=== PATIENT | male | born 1985 | race Caucasian/White ===

== ENCOUNTER 2018-12-11 11:06 | Day surgery (SDC) | payer BC ==
[2018-12-08 14:59] VITALS: BMI 22.3
[~2018-12-11 11:06] MED LIST: LACTATED RINGERS 1,000 ML IV SCH; LIDOCAINE 1% 20 ML VIAL (10MG/ML) FOR IV START INTRADERMA PRN
[2018-12-11 11:27] VITALS: TEMP 98.8
[2018-12-11] MEDS ORDERED: MIDAZOLAM 2 MG/2 ML VIAL ONE (11:52)
[2018-12-11] MEDS ORDERED: LIDOCAINE 1% INJ 10MG/ML (20 ML MDV) ONE (11:52)
[2018-12-11] MEDS ORDERED: PROPOFOL 10 MG/ML 20 ML VIAL IV ONE (11:52)
[2018-12-11] MEDS ORDERED: HEPARIN SODIUM,PORCINE 5,000 UNIT/ML 1 ML VIAL SQ ONE (12:05)
[2018-12-11 12:48] VITALS: BP 109/70; PULSE 76; RESP 18
--- NOTE | 2018-12-11 13:31 | P.PCN ---
Date of Procedure: 12/11/18 Procedure(s) Performed: Procedure: Colonoscopy and biopsy. Preoperative diagnosis: Rectal bleeding and mucus discharge off around 2 weeks duration and family history of colitis in his brother. Postoperative diagnosis: 1. Nonspecific changes in the sigmoid and rectum raising the possibility of resolving colitis. 2. Biopsies obtained from the terminal ileum, right colon sigmoid and rectum. Preparation: HalfLytely prep. Sedation: Was provided by anesthesia. Brief clinical history: The patient is a 33-year-old male who I have evaluated in the office earlier this month because of blood in the stools and family history of ulcerative colitis. He reported that he has been seeing blood and mucus in his stools starting earlier this year and has frequent bowel movements up to 5 times per day which he describes as loose. He lost 20 pounds in 1 month because he was avoiding certain foods. He said that the bleeding now has stopped 4 days ago and he has been avoiding bread. He has family history of ulcerative colitis in his brother. This evaluation is to rule out inflammatory bowel disease. Procedure: With the patient on his left lateral decubitus position and after informed consent and adequate sedation, the perianal area was inspected and it did not show any fissures or fistulas. There were no masses felt on digital rectal examination. The Olympus CFH 190L video colonoscope was then inserted in the rectum in the usual fashion and advanced to the cecum. I intubated the ileocecal valve and examined the terminal ileum. Terminal ileum and the majority of the colon appeared healthy with no edema, erythema, friability, ulceration, exudation or spontaneous bleeding. The distal sigmoid and rectum showed nonspecific changes consisting of erythema, some friability and scattered small erosions. There was no typical findings of ulcerative colitis. I obtained biopsies from the terminal ileum and right colon as well as from the sigmoid and rectum. I retroflexed the endoscope in the rectum before the endoscope was withdrawn. The patient tolerated the procedure well. Plan: I summarized the findings to the patient. Will await biopsy results and make further plans. I will keep you updated on his progress.
== END 2018-12-11 13:27 | disposition home or self-care (01) ==
LOC: ORWHC2ENDO 11:06
DX: K52.9 Noninfective gastroenteritis and colitis, unspecified (principal); Z83.79 Family history of other diseases of the digestive system; Z87.891 Personal history of nicotine dependence; Z88.1 Allergy status to other antibiotic agents; Z88.0 Allergy status to penicillin
CPT/HCPCS: 88305; 45380; J2250; J2001; J2704

== ENCOUNTER 2024-12-12 11:30 | Inpatient (IN) | payer BC ==
[2024-12-12] MEDS: HYDROmorphone 0.5 MG/0.5 ML SYRINGE IVP STA (11:59)
[2024-12-12] MEDS: SODIUM CHLORIDE 0.9% 1,000 ML IV STA ×2 (12:00→13:21)
--- NOTE | 2024-12-12 12:13 | ED ---
Abdominal Pain HPI - General Chief Complaint: Abdominal Pain Stated Complaint: Constipation Time Seen by Provider: 12/12/24 11:38 Source: patient, RN notes reviewed Mode of arrival: ambulatory Limitations: no limitations - History of Present Illness Initial Comments: This is a 39-year-old male who presents to the emergency department for abdominal pain and problems with his bowels. Patient has a history of ulcerative colitis. States that he had norovirus 3 weeks ago and since then he has been dealing with very small but frequent bowel movements, going at least once every hour. He thought that he was improving, however over the last 3 days he seems to be getting worse. He has been unable to sleep due to getting up to use the bathroom. He has followed up with Dr. Song, GI, twice over the last couple weeks. States that he was just started on budesonide, however this has not been helping either. Denies any nausea or vomiting. He does have some generalized abdominal discomfort and is concerned about a bowel obstruction. MD Complaint: abdominal pain - Related Data Home Medications Medication Instructions Recorded Confirmed Balsalazide Disodium 2,250 mg PO TID 03/04/24 12/12/24 Budesonide [Entocort EC] See Taper PO DAILY 12/12/24 12/12/24 Allergies Allergy/AdvReac Type Severity Reaction Status Date / Time amoxicillin Allergy Rash/Hives Verified 12/12/24 13:53 erythromycin base Allergy Rash/Hives Verified 12/12/24 13:53 Penicillins Allergy Rash/Hives Verified 12/12/24 13:53 Review of Systems ROS Statement: Those systems with pertinent positive or pertinent negative responses have been documented in the HPI. ROS Other: All systems not noted in ROS Statement are negative. Past Medical History Past Medical History: GI Bleed Additional Past Medical History / Comment(s): HX OF GI BLEED, ABD PAIN, ULCERATIVE COLITIS History of Any Multi-Drug Resistant Organisms: None Reported Past Surgical History: Ear Surgery Additional Past Surgical History / Comment(s): BMT. WISDOM TEETH. COLONOSCOPY Past Anesthesia/Blood Transfusion Reactions: No Reported Reaction, Motion Sickness Past Psychological History: No Psychological Hx Reported Smoking Status: Former smoker - Past Family History Mother Family Medical History: Cancer Additional Family Medical History / Comment(s): THYROID [place] General Exam Limitations: no limitations General appearance: alert, in no apparent distress Head exam: Present: atraumatic, normocephalic, normal inspection Respiratory exam: Present: normal lung sounds bilaterally. Absent: respiratory distress, wheezes, rales, rhonchi, stridor Cardiovascular Exam: Present: regular rate, normal rhythm GI/Abdominal exam: Present: soft, tenderness (diffuse), normal bowel sounds. Absent: distended Neurological exam: Present: alert, oriented X3, CN II-XII intact Psychiatric exam: Present: normal affect, normal mood Skin exam: Present: warm, dry, intact, normal color. Absent: rash Course Vital Signs 12/12/24 12/12/24 12/12/24 11:31 15:21 16:14 Temperature 98.7 F 97.9 F Pulse Rate 123 H 96 98 Respiratory 18 18 18 Rate Blood Pressure 121/78 124/77 118/77 O2 Sat by Pulse 99 98 97 Oximetry Medical Decision Making - Medical Decision Making This is a 39-year-old male who presents to the emergency department for abdominal pain and changes in bowel habits. Was pt. sent in by a medical professional or institution? @ -No Did you speak to anyone other than the patient for history? @ -No Did you review nursing and triage notes? @ -Yes, and I agree, it is accurate with regards to the patient's symptoms. Were old charts reviewed? @ -Stool testing from 11/30/2024 with a positive lactoferrin and calprotectin of 371 Differential Diagnosis? @ -Differential Abdominal Pain Men: Appendicitis, cholecystitis, diverticulosis, ischemic bowel, pancreatitis, hepatitis, UTI, gastroenteritis, AAA, incarcerated hernia, bowel obstruction, constipation, inflammatory bowel, hepatitis, peptic ulcer disease, splenic infarction, perforated viscus, testicular torsion, this is not meant to be an all-inclusive list EKG interpreted by me (3pts min.)? @ -Not obtained X-rays interpreted by me (1pt min.)? @ -Not obtained CT interpreted by me (1pt min.)? @ -CT scan of the abdomen and pelvis obtained. My interpretation identifies wall thickening of the colon. U/S interpreted by me (1pt. min.)? @ -Not obtained What testing was considered but not performed? (CT, X-rays, U/S, labs)? Why? @ -None What meds were considered but not given? Why? @ -None Did you discuss the management of the patient with other professionals? @ -Yes, Dr. Mckeon, who accepts the patient for admission. Did you reconcile home meds? @ -Yes Was smoking cessation discussed for >3mins.? @ -No Was critical care preformed (if so, how long)? @ -No Were there social determinants of health that impacted care today? How? (Homelessness, low income, unemployed, alcoholism, drug addiction, transportation, low edu. Level, literacy, decrease access to med. care, [place] [facility], rehab)? @ -No Was there de-escalation of care discussed even if they declined? (Discuss DNR or withdrawal of care, Hospice)? @ -No What co-morbidities impacted this encounter? (DM, HTN, Smoking, COPD, CAD, Cancer, CVA, Hep., AIDS, mental health diagnosis, sleep apnea, morbid obesity)? @ -Ulcerative colitis Was patient admitted / discharged? @ -Admitted. Lab work demonstrates leukocytosis with a white blood cell count of 18.1. CRP elevated at 7.5. Urinalysis negative for signs of infection. C. difficile testing negative. CT scan of the abdomen and pelvis demonstrates diffuse colitis likely from infectious/inflammatory process. Patient has been dealing with this for 3 weeks at this point and is on both colazal and budesonide without any relief. It is not clear if the leukocytosis is secondary to the steroid use versus infection. Given the progression of his symptoms with failed outpatient management, he was admitted to medicine for pancolitis. He was started on methylprednisolone 20 mg every 8 hours. Consult placed for general surgery. Repeat lactoferrin and calprotectin testing ordered with results pending at the time of admission as well as a stool culture. Case discussed with ED attending Dr. Sanchez. Undiagnosed new problem with uncertain prognosis? @ -None Drug Therapy requiring intensive monitoring for toxicity (Heparin, Nitro, Insulin, Cardizem)? @ -None Were any procedures done? @ -None Diagnosis/symptom? @ -Pancolitis, failure of outpatient treatment Acute, or Chronic, or Acute on Chronic? @ -Acute Uncomplicated (without systemic symptoms) or Complicated (systemic symptoms)? @ -Complicated Side effects of treatment? @ -None Exacerbation, Progression, or Severe Exacerbation] @ -Not applicable Poses a threat to life or bodily function? @ -Yes, can lead to life threatening infection - Lab Data Result diagrams: 12/12/24 11:54 12/12/24 11:54 Lab Results 12/12/24 12/12/24 12/12/24 Range/Units 11:54 11:54 11:54 WBC 18.1 H (3.8-10.6) k/uL RBC 4.85 (4.30-5.90) m/uL Hgb 15.4 (13.0-17.5) gm/dL Hct 46.4 (39.0-53.0) % MCV 95.7 (80.0-100.0) fL MCH 31.7 (25.0-35.0) pg MCHC 33.2 (31.0-37.0) g/dL RDW 11.8 (11.5-15.5) % Plt Count 409 (150-450) k/uL MPV 7.9 Neutrophils % 87 % Lymphocytes % 4 % Monocytes % 7 % Eosinophils % 1 % Basophils % 0 % Neutrophils # 15.7 H (1.3-7.7) k/uL Lymphocytes # 0.7 L (1.0-4.8) k/uL Monocytes # 1.3 H (0-1.0) k/uL Eosinophils # 0.2 (0-0.7) k/uL Basophils # 0.1 (0-0.2) k/uL Manual Slide Review Performed RBC Morphology Normal Sodium 131 L (137-145) mmol/L Potassium 3.5 (3.5-5.1) mmol/L Chloride 92 L (98-107) mmol/L Carbon Dioxide 29 (22-30) mmol/L Anion Gap 10 mmol/L BUN 11 (9-20) mg/dL Creatinine 0.64 L (0.66-1.25) mg/dL Est GFR (CKD-EPI)AfAm >90 (>60 ml/min/1.73 sqM) Est GFR (CKD-EPI)NonAf >90 (>60 ml/min/1.73 sqM) Glucose 115 H (74-99) mg/dL Plasma Lactic Acid Yonas 1.6 (0.7-2.0) mmol/L Calcium 9.3 (8.4-10.2) mg/dL Phosphorus 4.2 (2.5-4.5) mg/dL Magnesium 1.9 (1.6-2.3) mg/dL Total Bilirubin 0.7 (0.2-1.3) mg/dL AST 19 (17-59) U/L ALT 12 (4-49) U/L Alkaline Phosphatase 84 (38-126) U/L C-Reactive Protein 7.5 H (<1.0) mg/dL Total Protein 6.9 (6.3-8.2) g/dL Albumin 3.5 (3.5-5.0) g/dL Amylase 37 (30-110) U/L Lipase 33 (23-300) U/L Urine Color Urine Appearance (Clear) Urine pH (5.0-8.0) Ur Specific [place] (1.001-1.035) Urine Protein (Negative) Urine Glucose (UA) (Negative) Urine Ketones (Negative) Urine Blood (Negative) Urine Nitrite (Negative) Urine Bilirubin (Negative) Urine Urobilinogen (<2.0) mg/dL Ur Leukocyte Esterase (Negative) C. difficile (EIA) Intrp (Negative) 12/12/24 12/12/24 Range/Units 13:22 13:22 WBC (3.8-10.6) k/uL RBC (4.30-5.90) m/uL Hgb (13.0-17.5) gm/dL Hct (39.0-53.0) % MCV (80.0-100.0) fL MCH (25.0-35.0) pg MCHC (31.0-37.0) g/dL RDW (11.5-15.5) % Plt Count (150-450) k/uL MPV Neutrophils % % Lymphocytes % % Monocytes % % Eosinophils % % Basophils % % Neutrophils # (1.3-7.7) k/uL Lymphocytes # (1.0-4.8) k/uL Monocytes # (0-1.0) k/uL Eosinophils # (0-0.7) k/uL Basophils # (0-0.2) k/uL Manual Slide Review RBC Morphology Sodium (137-145) mmol/L Potassium (3.5-5.1) mmol/L Chloride (98-107) mmol/L Carbon Dioxide (22-30) mmol/L Anion Gap mmol/L BUN (9-20) mg/dL Creatinine (0.66-1.25) mg/dL Est GFR (CKD-EPI)AfAm (>60 ml/min/1.73 sqM) Est GFR (CKD-EPI)NonAf (>60 ml/min/1.73 sqM) Glucose (74-99) mg/dL Plasma Lactic Acid Yonas (0.7-2.0) mmol/L Calcium (8.4-10.2) mg/dL Phosphorus (2.5-4.5) mg/dL Magnesium (1.6-2.3) mg/dL Total Bilirubin (0.2-1.3) mg/dL AST (17-59) U/L ALT (4-49) U/L Alkaline Phosphatase (38-126) U/L C-Reactive Protein (<1.0) mg/dL Total Protein (6.3-8.2) g/dL Albumin (3.5-5.0) g/dL Amylase (30-110) U/L Lipase (23-300) U/L Urine Color Light Yellow Urine Appearance Clear (Clear) Urine pH 6.5 (5.0-8.0) Ur Specific [place] >1.050 H (1.001-1.035) Urine Protein Negative (Negative) Urine Glucose (UA) Negative (Negative) Urine Ketones Trace H (Negative) Urine Blood Negative (Negative) Urine Nitrite Negative (Negative) Urine Bilirubin Negative (Negative) Urine Urobilinogen <2.0 (<2.0) mg/dL Ur Leukocyte Esterase Negative (Negative) C. difficile (EIA) Intrp Negative (Negative) - Radiology Data Radiology results: report reviewed, image reviewed Disposition Clinical Impression: Pancolitis, Failure of outpatient treatment Disposition: ADMITTED IP TO THIS HOSP
--- NOTE | 2024-12-12 12:45 | CT ---
EXAMINATION TYPE: CT abdomen pelvis w con CT DLP: 540.3 mGycm, Automated exposure control for dose reduction was used. DATE OF EXAM: 12/12/2024 12:36 PM COMPARISON: None CLINICAL INDICATION:Male, 39 years old with history of abdominal pain, acute, nonlocalized; ABD PAIN TECHNIQUE: Standard CT of the abdomen and pelvis following the administration of 100 cc of Isovue 3 00 IV contrast material. Coronal and sagittal reformats were performed. FINDINGS: Limited examination due to paucity of intraabdominal fat. LOWER CHEST: Unremarkable ABDOMEN LIVER: Unremarkable GALLBLADDER AND BILE DUCTS: Unremarkable. PANCREAS: Unremarkable. SPLEEN: Unremarkable. ADRENAL GLANDS: Unremarkable. KIDNEYS AND URETERS: No evidence of hydronephrosis or renal calculus. The kidneys enhance symmetrical ly. Right renal 1.1 cm superior pole cyst. Contrast is demonstrated within both collecting systems on the delayed phase. PELVIS BLADDER: Underdistended, limiting evaluation. REPRODUCTIVE: Unremarkable. ABDOMEN & PELVIS STOMACH AND BOWEL: Stomach and duodenum are unremarkable. Diffuse circumferential wall thickening of the colon. The appendix is within normal limits. No pneumatosis. No evidence of bowel obstruction. PERITONEUM: No evidence of pneumoperitoneum or free fluid. VASCULATURE: No evidence of aortic aneurysm. MUSCULOSKELETAL: No acute osseous abnormalities. Minimal degenerative disc disease L5-S1. LYMPH NODES: No gross evidence for lymphadenopathy. SOFT TISSUE/ABDOMINAL WALL: Unremarkable IMPRESSION: Diffuse colitis likely from an infectious/inflammatory process. C. difficile is in the differential. [facility], , 12/12/2024 12:42 PM
[2024-12-12 12:51] LABS: Basophils # (A) 0.1 k/uL (0-0.2); Basophils % (A) 0 %; Eosinophils # (A) 0.2 k/uL (0-0.7); Eosinophils % (A) 1 %; HCT 46.4 % (39.0-53.0); HGB 15.4 gm/dL (13.0-17.5); Lymphocytes # (A) 0.7 k/uL (1.0-4.8); Lymphocytes % (A) 4 %; MCH 31.7 pg (25.0-35.0); MCHC 33.2 g/dL (31.0-37.0); MCV 95.7 fL (80.0-100.0); Mean Platelet Volume 7.9; Monocytes # (A) 1.3 k/uL (0-1.0); Monocytes % (A) 7 %; Neutrophils # (A) 15.7 k/uL (1.3-7.7); Neutrophils % (A) 87 %; Platelet Count 409 k/uL (150-450); RBC 4.85 m/uL (4.30-5.90); RDW 11.8 % (11.5-15.5); WBC 18.1 k/uL (3.8-10.6)
[2024-12-12 12:53] LABS: ALT 12 U/L (4-49); AST 19 U/L (17-59); African American GFR (CKD) >90 (>60 ml/min/1.73 sqM); Albumin 3.5 g/dL (3.5-5.0); Alkaline Phosphatase 84 U/L (38-126); Amylase 37 U/L (30-110); Anion Gap 10 mmol/L; Blood Urea Nitrogen 11 mg/dL (9-20); C Reactive Protein 7.5 mg/dL (<1.0); Calcium 9.3 mg/dL (8.4-10.2); Carbon Dioxide 29 mmol/L (22-30); Chloride 92 mmol/L (98-107); Glucose 115 mg/dL (74-99); Lipase 33 U/L (23-300); Magnesium 1.9 mg/dL (1.6-2.3); Non-African American GFR(CKD) >90 (>60 ml/min/1.73 sqM); Phosphorus 4.2 mg/dL (2.5-4.5); Potassium 3.5 mmol/L (3.5-5.1); Sodium 131 mmol/L (137-145); Total Bilirubin 0.7 mg/dL (0.2-1.3); Total Protein 6.9 g/dL (6.3-8.2)
[2024-12-12 13:15] LABS: RBC Morphology Normal
[2024-12-12 13:48] LABS: Appearance,Urine Clear (Clear); Bilirubin,Urine Negative (Negative); Blood,Urine Negative (Negative); Color,Urine Light Yellow; Glucose,Urine (UA) Negative (Negative); Ketones,Urine Trace (Negative); Leukocyte Esterase,Urine Negative (Negative); Nitrite,Urine Negative (Negative); PH, Urine 6.5 (5.0-8.0); Protein,Urine Negative (Negative); Specific Gravity,Urine >1.050 (1.001-1.035); Urobilinogen,Urine <2.0 mg/dL (<2.0)
[2024-12-12] MEDS ORDERED: HYDROmorphone 0.5 MG/0.5 ML SYRINGE IVP PRN (14:43)
[2024-12-12] MEDS ORDERED: ONDANSETRON 4 MG/2 ML VIAL IVP PRN (14:43)
[2024-12-12] MEDS ORDERED: NALOXONE 0.4 MG/ML 1 ML VIAL IV PRN (14:43)
[2024-12-12] MEDS ORDERED: HYDROmorphone 1 MG/ML 1 ML SYRINGE IVP PRN (14:43)
[2024-12-12] MEDS ORDERED: ACETAMINOPHEN TAB 325 MG TAB PO PRN (14:43)
[2024-12-12] MEDS: SODIUM CHLORIDE 0.9% 1,000 ML IV SCH (14:54)
[2024-12-12] MEDS: methylPREDNISolone SOD SUCCI 40 MG/ML 1 ML VIAL IV SCH (14:56)
[2024-12-12] MEDS: BALSALAZIDE DISODIUM 750 MG CAPSULE PO SCH (21:34)
[2024-12-12] MEDS: LOPERAMIDE 2 MG CAP PO PRN (22:01)
--- NOTE | 2024-12-13 06:14 | P.CON ---
Consult Note - . Consult date: 12/13/24 Assessment/Plan:: This is a 39-year-old male who presents to the emergency department for abdominal pain and diarrhea. Patient has a history of ulcerative colitis. States that he had norovirus 3 weeks ago and since then he has been dealing with very small but frequent bowel movements, going at least once every hour. He thought that he was improving, however over the last 3 days he seems to be getting worse. He has been unable to sleep due to getting up to use the bathroom. He has followed up with Dr. Song GI, twice over the last couple weeks. States that he was just started on budesonide, however this has not been helping either. Denies any nausea or vomiting. He does have some generalized abdominal discomfort. He had a CT-AP which showed diffuse colitis. On examination this morning, he states he is feeling better. He is having less bowel movements. He is tolerating Clear Liquid Diet. Abdominal discomfort has improved. Denies fevers. Review of Systems ROS Statement: Those systems with pertinent positive or pertinent negative responses have been documented in the HPI. ROS Other: All systems not noted in ROS Statement are negative. Past Medical History Past Medical History: GI Bleed Additional Past Medical History / Comment(s): HX OF GI BLEED, ABD PAIN, ULCERATIVE COLITIS History of Any Multi-Drug Resistant Organisms: None Reported Past Surgical History: Ear Surgery Additional Past Surgical History / Comment(s): BMT. WISDOM TEETH. COLONOSCOPY Past Anesthesia/Blood Transfusion Reactions: No Reported Reaction, Motion Sickness Past Psychological History: No Psychological Hx Reported Smoking Status: Former smoker - Past Family History Mother Family Medical History: Cancer Additional Family Medical History / Comment(s): THYROID [place] General Exam Limitations: no limitations General appearance: alert, in no apparent distress Head exam: Present: atraumatic, normocephalic, normal inspection Respiratory exam: Present: normal lung sounds bilaterally. Absent: respiratory distress, wheezes, rales, rhonchi, stridor Cardiovascular Exam: Present: regular rate, normal rhythm GI/Abdominal exam: Present: soft, tenderness (diffuse), normal bowel sounds. Absent: distended Neurological exam: Present: alert, oriented X3, CN II-XII intact Psychiatric exam: Present: normal affect, normal mood Skin exam: Present: warm, dry, intact, normal color. Absent: rash 39 year old male with Ulcerative Colitis Exacerbation vs Infectious Colitis -Clear Liquid Diet -IV fluids -Balsalazide Disodium and Methylprednisolone -Zosyn -Follow up stool cultures -Pain and Nausea Control -Recommend GI consult -AM labs -No acute surgical intervention at this time Nicola Jerome DO [facility] [phone]
[2024-12-13] MEDS: PANTOPRAZOLE 40 MG/10 ML VIAL IV SCH (08:14)
[2024-12-13] MEDS: PIPERACILLIN-TAZOBACTAM 3.375 GM in SODIUM CHLORIDE 0.9% 100 ML IVPB SCH (08:16)
--- NOTE | 2024-12-13 13:44 | P.HPIM ---
History of Present Illness H&P Date: 12/13/24 History of present illness: 39-year-old male patient with past medical history significant for ulcerative colitis who presented to ER with a complaint of abdominal pain, and bloody diarrhea. Patient reported that he had norovirus about 3 weeks ago when patient had fever, watery diarrhea. Patient stated that his diarrhea has not improved since then, patient is having multiple bowel movements more than 20 every day, also reported on and off blood in the stools. Patient reported that he has been getting worse for the last 3 days and is unable to sleep as patient need to go to the bathroom almost every hour. Patient reported that he has followed up with gastroenterology twice over the last couple weeks, he was started on budesonide however this has not been helping. Patient is afebrile, heart rate 89, respiratory rate 17, blood pressure 110/71, saturating 99% on room air. WBCs 18.1, hemoglobin 15.4, platelet 409. Sodium 131, potassium 3.5, chloride 92, CO2 29, BUN 11, creatinine 0.64. Liver profile unremarkable CRP 7.5. Stool lactoferrin positive C. difficile negative CT abdomen pelvis showed diffuse colitis likely from infectious/inflammatory process. Assessment and plan: Ulcerative colitis flareup: History of ulcerative colitis, follows gastroenterology, takes Colazal, was started on budesonide as outpatient for bloody diarrhea for 3 weeks Antiemetics, pain control IV fluids Solu-Medrol 20 mg every 8 hours Stool culture, stool calprotectin General Surgery consulted and following Will consult GI, GI will be back on tomorrow DVT prophylaxis SCD Monitor vital signs and labs Labs and medication were reviewed. Continue same treatment. Further recommendations as per clinical course of the patient PHYSICAL EXAMINATION: GENERAL: The patient is A&O x3, NAD HEENT: EOMI, Sclerae anicteric, Moist Mucous membranes Neck: Supple, Non tender, No JVD PULMONARY: Equal breath souds B/L, No wheezing, No crackles. CARDIOVASCULAR: S1, S2 present. No murmurs, rubs, or gallops. ABDOMEN: Soft, nontender, nondistended, normoactive bowel sounds. No guarding or rebound tenderness. MUSCULOSKELETAL: No edema, No cyanosis. No clubbing. Normal ROM. Intact peripheral pulses. NEUROLOGICAL: CN 2-12 grossly intact. No FND REVIEW OF SYSTEMS: CONSTITUTIONAL: No fever, no malaise, no fatigue. HEENT: No recent visual problems or hearing problems. Denied any sore throat. CARDIOVASCULAR: No chest pain, orthopnea, PND, no palpitations, no syncope. PULMONARY: No shortness of breath, no cough, no hemoptysis. GASTROINTESTINAL: No diarrhea, no nausea, no vomiting, no abdominal pain. NEUROLOGICAL: No headaches, no weakness, no numbness. HEMATOLOGICAL: Denies any bleeding or petechiae. GENITOURINARY: Denies any burning micturition, frequency, or urgency. MUSCULOSKELETAL/RHEUMATOLOGICAL: Denies any joint pain, swelling, or any muscle pain. ENDOCRINE: Denies any polyuria or polydipsia. The rest of the 14-point review of systems is negative. Dictation was produced using [employer] dictation software. please excuse any grammatical, word or spelling errors. Past Medical History Past Medical History: GI Bleed Additional Past Medical History / Comment(s): HX OF GI BLEED, ABD PAIN, ULCERATIVE COLITIS History of Any Multi-Drug Resistant Organisms: None Reported Past Surgical History: Ear Surgery Additional Past Surgical History / Comment(s): BMT. WISDOM TEETH. COLONOSCOPY Past Anesthesia/Blood Transfusion Reactions: No Reported Reaction, Motion Sickness Past Psychological History: No Psychological Hx Reported Smoking Status: Former smoker - Past Family History Mother Family Medical History: Cancer Additional Family Medical History / Comment(s): THYROID [place] Medications and Allergies Home Medications Medication Instructions Recorded Confirmed Type Balsalazide Disodium 2,250 mg PO TID 03/04/24 12/12/24 History Budesonide [Entocort EC] See Taper PO DAILY 12/12/24 12/12/24 History Allergies Allergy/AdvReac Type Severity Reaction Status Date / Time amoxicillin Allergy Rash/Hives Verified 12/12/24 13:53 erythromycin base Allergy Rash/Hives Verified 12/12/24 13:53 Penicillins Allergy Rash/Hives Verified 12/12/24 13:53 Physical Exam Vitals: Vital Signs Temp Pulse Pulse Resp BP BP Pulse Ox 12/13/24 07:42 97.7 F 89 17 110/71 99 12/13/24 01:22 97.8 F 59 L 15 110/69 97 12/12/24 19:58 97.5 F L 83 16 106/65 97 12/12/24 16:14 97.9 F 98 18 118/77 97 12/12/24 15:21 96 18 124/77 98 Intake and Output 12/12/24 12/13/24 12/13/24 22:59 06:59 14:59 Intake Total 200 Balance 200 Intake: Oral 200 Other: Voiding Method Toilet # Voids 1 # Bowel Movements 1 Results CBC & Chem 7: 12/12/24 11:54 12/12/24 11:54 Labs: Abnormal Lab Results - Last 24 Hours (Table) 12/12/24 12/12/24 Range/Units 13:20 13:22 Ur Specific [place] >1.050 H (1.001-1.035) Urine Ketones Trace H (Negative) Stool Lactoferrin Positive A (Negative) Thrombosis Risk Factor Assmnt - Choose All That Apply Any of the Below Risk Factors Present?: No Other Risk Factors: No Thrombosis Risk Factor Assessment Level: Very Low Risk
[2024-12-13 21:09] LABS: Glucose,Whole Blood 109 mg/dL (70-110)
[2024-12-14 08:16] LABS: Basophils # (A) 0.01 X 10*3/uL (0.00-0.10); Basophils % (A) 0.1 %; Eosinophils # (A) 0 X 10*3/uL (0.04-0.35); Eosinophils % (A) 0 %; HCT 35.1 % (39.6-50.0); HGB 12.1 g/dL (13.0-17.0); Lymphocytes # (A) 0.46 X 10*3/uL (0.90-5.00); Lymphocytes % (A) 5.7 %; MCH 32.3 pg (27.0-32.0); MCHC 34.5 g/dL (32.0-37.0); MCV 93.6 FL (80.0-97.0); Mean Platelet Volume 10.7 FL (9.5-12.2); Monocytes # (A) 0.53 X 10*3/uL (0.20-1.00); Monocytes % (A) 6.6 %; NRBC Per 100 WBC 0 X 10*3/uL (0.00-0.01); Neutrophils # (A) 6.98 X 10*3/uL (1.80-7.70); Neutrophils % (A) 87.2 %; Platelet Count 318 X 10*3/uL (140-440); RBC 3.75 X 10*6/uL (4.40-5.60); RDW 11.9 % (11.5-14.5); WBC 8.01 X 10*3/uL (4.50-10.00)
[2024-12-14 08:32] LABS: BUN/Creat Ratio 14.43 Ratio (12.00-20.00); Blood Urea Nitrogen 10.1 mg/dL (9.0-27.0); Calcium 8.3 mg/dL (8.7-10.3); Carbon Dioxide 25.9 mmol/L (21.6-31.8); Chloride 103 mmol/L (96-109); Glucose 105 mg/dL (70-110); Magnesium 2.1 mg/dL (1.5-2.4); Phosphorus 3.4 mg/dL (2.4-5.1); Potassium 4.4 mmol/L (3.5-5.5); Sodium 137 mmol/L (135-145)
--- NOTE | 2024-12-14 13:00 | P.PN ---
Subjective Progress Note Date: 12/14/24 SURGICAL PROGRESS NOTE CHIEF COMPLAINT: Ulcerative colitis exacerbation HISTORY OF PRESENT ILLNESS: Patient complains of abdominal pain and bloody diarrhea. Patient reports that he did take an Imodium last night due to having a lot of diarrhea. Since the Imodium he feels that he has had more blood in the stools. He denies any nausea or vomiting. He does report feeling hungry. Does have a known history of ulcerative colitis. Afebrile. WBC has normalized from 18-8. Patient had declined taking the antibiotics because he was worried about side effects from the medications. He does remain on steroids. Stool cultures pending PHYSICAL EXAM: VITAL SIGNS: Reviewed. GENERAL: Well-developed in no acute distress. ABDOMEN: Soft. Nondistended. Diffuse tenderness. No rebound or guarding note d. NEUROLOGIC: Alert and oriented. Cranial nerves II through XII grossly intact. ASSESSMENT: 1. Ulcerative colitis exacerbation 2. Recent norovirus infection 3 weeks ago PLAN: -No surgical intervention planned -Patient being followed by GI service. Will await their further recommendations. -Follow-up on stool studies -Continue IV steroids -Continue IV fluids -GI service has advance diet to low fiber/low fat -Will monitor patient off of antibiotics. He has refused to take antibiotics. And his white count has normalized. Physician Meat Service Team Member note has been reviewed by physician. Signing provider agrees with the documented findings, assessment, and plan of care. Attestation Patient seen and examined at bedside on 12/14/2024. Presented with chief complaint of ulcerative colitis exacerbation. States that bowel function is decreasing. White count has normalized. GI is following with IV steroids and IV fluids. GI service recommended advancing diet. Patient is refusing antibiotics at this time. Continue with current management. Jeremiah Person DO Objective - Vital Signs Vital signs: Vital Signs Temp 98.5 F 12/14/24 07:00 Pulse 80 12/14/24 07:00 Resp 16 12/14/24 07:00 BP 102/64 12/14/24 07:00 Pulse Ox 98 12/14/24 07:00 FiO2 Intake & Output 12/13/24 12/14/24 12/14/24 18:59 06:59 18:59 Other: Voiding Method Toilet Toilet # Voids 1 # Bowel Movements 8 - Labs CBC & Chem 7: 12/15/24 03:46 03/04/25 03:46 Labs: Abnormal Lab Results - Last 24 Hours (Table) 12/14/24 12/14/24 Range/Units 03:00 03:00 RBC 3.75 L (4.40-5.60) X 10*6/uL Hgb 12.1 L (13.0-17.0) g/dL Hct 35.1 L (39.6-50.0) % MCH 32.3 H (27.0-32.0) pg Lymphocytes # 0.46 L (0.90-5.00) X 10*3/uL Eosinophils # 0 L (0.04-0.35) X 10*3/uL Calcium 8.3 L (8.7-10.3) mg/dL Microbiology - Last 24 Hours (Table) 12/12/24 13:20 Stool Culture - Preliminary Stool
--- NOTE | 2024-12-14 14:11 | P.PN ---
Subjective Progress Note Date: 12/14/24 Interval History: History of present illness: 39-year-old male patient with past medical history significant for ulcerative colitis who presented to ER with a complaint of abdominal pain, and bloody diarrhea. Patient reported that he had norovirus about 3 weeks ago when patient had fever, watery diarrhea. Patient stated that his diarrhea has not improved since then, patient is having multiple bowel movements more than 20 every day, also reported on and off blood in the stools. Patient reported that he has been getting worse for the last 3 days and is unable to sleep as patient need to go to the bathroom almost every hour. Patient reported that he has followed up with gastroenterology twice over the last couple weeks, he was started on budesonide however this has not been helping. Patient is afebrile, heart rate 89, respiratory rate 17, blood pressure 110/71, saturating 99% on room air. WBCs 18.1, hemoglobin 15.4, platelet 409. Sodium 131, potassium 3.5, chloride 92, CO2 29, BUN 11, creatinine 0.64. Liver profile unremarkable CRP 7.5. Stool lactoferrin positive C. difficile negative CT abdomen pelvis showed diffuse colitis likely from infectious/inflammatory process. 12/14--patient was seen and examined today, continues to have diarrhea, slightly better as compared to yesterday, remained afebrile, heart rate 91, respiratory rate 18, blood pressure 110/63, saturating 97% on room air. WBCs 8.01, hemoglobin 12.1, platelet 318. BMP unremarkable. C. difficile negative. Gener al surgery following. GI consulted. Assessment and plan: Acute ulcerative colitis flareup: History of ulcerative colitis, follows gastroenterology, takes Colazal, was started on budesonide as outpatient for bloody diarrhea for 3 weeks Antiemetics, pain control IV fluids Solu-Medrol 20 mg every 8 hours Stool culture, stool calprotectin C. difficile negative General Surgery consulted and following GI consulted DVT prophylaxis SCD Monitor vital signs and labs Labs and medication were reviewed. Continue same treatment. Further recommendations as per clinical course of the patient PHYSICAL EXAMINATION: GENERAL: The patient is A&O x3, NAD HEENT: EOMI, Sclerae anicteric, Moist Mucous membranes Neck: Supple, Non tender, No JVD PULMONARY: Equal breath souds B/L, No wheezing, No crackles. CARDIOVASCULAR: S1, S2 present. No murmurs, rubs, or gallops. ABDOMEN: Soft, nontender, nondistended, normoactive bowel sounds. No guarding or rebound tenderness. MUSCULOSKELETAL: No edema, No cyanosis. No clubbing. Normal ROM. Intact peripheral pulses. NEUROLOGICAL: CN 2-12 grossly intact. No FND REVIEW OF SYSTEMS: CONSTITUTIONAL: No fever or chills. CARDIOVASCULAR: No chest pain, palpitations or syncope. PULMONARY: No shortness of breath, no cough, sore throat. GASTROINTESTINAL: Complains of diarrhea. No nausea vomiting. : No Dysuria, urgency, frequency. Extremities: No edema. NEUROLOGICAL: No headaches, no weakness, or numbness Dictation was produced using [employer] dictation software. please excuse any grammatical, word or spelling errors. Objective - Vital Signs Vital signs: Vital Signs Temp 97.9 F 12/14/24 13:45 Pulse 91 12/14/24 13:45 Resp 18 12/14/24 13:45 BP 110/63 12/14/24 13:45 Pulse Ox 97 12/14/24 13:45 FiO2 Intake & Output 12/13/24 12/14/24 12/14/24 18:59 06:59 18:59 Other: Voiding Method Toilet Toilet # Voids 1 # Bowel Movements 8 - Labs CBC & Chem 7: 12/14/24 03:00 12/14/24 03:00 Labs: Abnormal Lab Results - Last 24 Hours (Table) 12/14/24 12/14/24 Range/Units 03:00 03:00 RBC 3.75 L (4.40-5.60) X 10*6/uL Hgb 12.1 L (13.0-17.0) g/dL Hct 35.1 L (39.6-50.0) % MCH 32.3 H (27.0-32.0) pg Lymphocytes # 0.46 L (0.90-5.00) X 10*3/uL Eosinophils # 0 L (0.04-0.35) X 10*3/uL Calcium 8.3 L (8.7-10.3) mg/dL Microbiology - Last 24 Hours (Table) 12/12/24 13:20 Stool Culture - Preliminary Stool
--- NOTE | 2024-12-14 14:13 | P.CONS ---
History of Present Illness - Reason for Consult Consult date: 12/14/24 Ulcerative colitis Requesting physician: Tan Mckeon - Chief Complaint Diarrhea - History of Present Illness This is a pleasant 39-year-old male with a history of ulcerative colitis diagnosed 6 to 7 years ago who presented to the emergency department with complaints of multiple loose bloody bowel movements. States he has been following with gastroenterology he was recently seen by Shahla and started on budesonide about a week ago without any improvement. He states he has been having 10-30 bowel movements a day. He has multiple dietary sensitivities. He denies any nausea or vomiting, he has been afebrile. States symptoms started after he had contact with family members with stomach flu and patient did end up positive with norovirus. States he lost about 15 pounds over last 1 months duration. On admission CRP was elevated, he had leukocytosis however states he has been afebrile. Medical team started him on IV antibiotics however patient has been refusing to take them. He was started on IV steroids. Symptoms are improving with only 3 bowel movements today. Denies any abdominal pain. 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 Rest of colon appeared normal. Recent outpatient stool samples from 11/30/2024 negative for C. difficile, positive for lactoferrin stool calprotectin 331, positive for norovirus C. difficile negative, stool lactoferrin positive, stool calprotectin pending. Review of Systems REVIEW OF SYSTEMS: CARDIOPULMONARY: No chest pain or shortness of breath. Gastrointestinal: No abdominal pain. No nausea or vomiting. No hematemesis, coffee-ground emesis. Multiple episodes of diarrhea, bloody. GENITOURINARY: No dysuria or hematuria. MUSCULOSKELETAL: Reports normal range of motion. SKIN: No rashes. No jaundice. ENDOCRINE: No chills, fevers. No excessive weight gain or loss. No polydipsia or polyuria. PSYCHIATRIC: Unremarkable. NEUROLOGY: No change in mental status. Denies dizziness, headache. ENT: Vision unremarkable. CONSTITUTIONAL: No recent w 15 pound weight loss n last month. o fever, chills, night sweats. Past Medical History Past Medical History: GI Bleed Additional Past Medical History / Comment(s): HX OF GI BLEED, ABD PAIN, ULCERATIVE COLITIS History of Any Multi-Drug Resistant Organisms: None Reported Past Surgical History: Ear Surgery Additional Past Surgical History / Comment(s): BMT. WISDOM TEETH. COLONOSCOPY Past Anesthesia/Blood Transfusion Reactions: No Reported Reaction, Motion Sickne ss Past Psychological History: No Psychological Hx Reported Smoking Status: Former smoker - Past Family History Mother Family Medical History: Cancer Additional Family Medical History / Comment(s): THYROID CA Medications and Allergies Home Medications Medication Instructions Recorded Confirmed Type Balsalazide Disodium 2,250 mg PO TID 03/04/24 12/12/24 History Budesonide [Entocort EC] See Taper PO DAILY 12/12/24 12/12/24 History Allergies Allergy/AdvReac Type Severity Reaction Status Date / Time amoxicillin Allergy Rash/Hives Verified 12/12/24 13:53 erythromycin base Allergy Rash/Hives Verified 12/12/24 13:53 Penicillins Allergy Rash/Hives Verified 12/12/24 13:53 Physical Exam Vitals: Vital Signs Temp Pulse Resp BP Pulse Ox 12/14/24 07:00 98.5 F 80 16 102/64 98 12/14/24 02:12 97.5 F L 83 17 112/65 97 12/13/24 20:05 98.6 F 79 20 107/66 94 L 12/13/24 13:15 98.4 F 80 18 121/71 99 Intake and Output 12/13/24 12/14/24 12/14/24 22:59 06:59 14:59 Other: Voiding Method Toilet Toilet # Voids 1 # Bowel Movements 8 General appearance: The patient is alert, oriented, appears in no acute distress. HET: Head is normocephalic and atraumatic. Conjunctiva pink. Sclera anicteric. Neck: Supple without lymphadenopathy. Trachea midline. Heart: Regular. Lungs: Equal expansion, normal respiratory effort. Abdomen: Soft, left lower quadrant tenderness, thin, nondistended. Skin: No rashes. No jaundice. Extremities: Normal skin color and turgor. No pedal edema. Neurological: No focal deficits. Alert and oriented x3. Results CBC & Chem 7: 12/14/24 03:00 12/14/24 03:00 Labs: Abnormal Lab Results - Last 24 Hours (Table) 12/14/24 12/14/24 Range/Units 03:00 03:00 RBC 3.75 L (4.40-5.60) X 10*6/uL Hgb 12.1 L (13.0-17.0) g/dL Hct 35.1 L (39.6-50.0) % MCH 32.3 H (27.0-32.0) pg Lymphocytes # 0.46 L (0.90-5.00) X 10*3/uL Eosinophils # 0 L (0.04-0.35) X 10*3/uL Calcium 8.3 L (8.7-10.3) mg/dL Microbiology - Last 24 Hours (Table) 12/12/24 13:20 Stool Culture - Preliminary Stool Comments: CT abdomen pelvis reports diffuse colitis likely from an infectious/inflammatory process. C. difficile-itis is in the differential. Assessment and Plan (1) Ulcerative colitis Narrative/Plan: 39-year-old male with ulcerative colitis presenting with increased stool output with blood over the last 3 weeks duration with outpatient treatment failure. Patient was exposed to norovirus and did test positive about 3 weeks ago which likely caused a flareup in his ulcerative colitis. Admitted for IV steroids, symptomatic treatment last colonoscopy in February 2024 no plans to repeat colonoscopy. Continue symptomatic and supportive care. Current Visit: Yes Status: Acute Code(s): K51.90 - ULCERATIVE COLITIS, UNSPECIFIED, WITHOUT COMPLICATIONS SNOMED Code(s): 87500950 (2) Diarrhea Current Visit: Yes Status: Acute Code(s): R19.7 - DIARRHEA, UNSPECIFIED SNOMED Code(s): 55809239 Plan: 1. Continue symptomatic and supportive care 2. Patient with multiple food intolerances, can have bland diet 3. Continue IV Solu-Medrol 20 mg every 8 hours 4. No need for IV antibiotics 5. Continue balsalazide 7. Continue IV hydration 8. No plans on endoscopic evaluation Thank you for this consultation, we will continue to follow. Dr. Wilfrido Song I agree with the dictator's note, documented as a scribe by Khadijah Nelson.
[2024-12-14 14:40] VITALS: BMI 19.3
[2024-12-15 08:40] LABS: HGB 11.1 g/dL (13.0-17.0); MCH 31.9 pg (27.0-32.0); MCHC 33.6 g/dL (32.0-37.0); MCV 94.8 FL (80.0-97.0); Mean Platelet Volume 10.7 FL (9.5-12.2); NRBC Per 100 WBC 0 X 10*3/uL (0.00-0.01); Platelet Count 310 X 10*3/uL (140-440); RBC 3.48 X 10*6/uL (4.40-5.60); RDW 11.8 % (11.5-14.5); WBC 7.36 X 10*3/uL (4.50-10.00)
[2024-12-15 08:49] LABS: BUN/Creat Ratio 18.33 Ratio (12.00-20.00); Calcium 7.9 mg/dL (8.7-10.3); Carbon Dioxide 27.8 mmol/L (21.6-31.8); Chloride 102 mmol/L (96-109); Glucose 119 mg/dL (70-110); Magnesium 2.1 mg/dL (1.5-2.4); Potassium 4.4 mmol/L (3.5-5.5); Sodium 137 mmol/L (135-145)
[2024-12-15 09:21] LABS: Basophils # (A) 0.02 X 10*3/uL (0.00-0.10); Basophils % (A) 0.3 %; Eosinophils # (A) 0 X 10*3/uL (0.04-0.35); Eosinophils % (A) 0 %; Lymphocytes # (A) 0.47 X 10*3/uL (0.90-5.00); Lymphocytes % (A) 6.4 %; Monocytes # (A) 0.45 X 10*3/uL (0.20-1.00); Monocytes % (A) 6.1 %; Neutrophils % (A) 86.9 %
--- NOTE | 2024-12-15 09:58 | P.PN ---
Subjective Progress Note Date: 12/15/24 SURGICAL PROGRESS NOTE CHIEF COMPLAINT: Ulcerative colitis exacerbation HISTORY OF PRESENT ILLNESS: Patient is sitting up at bedside chair. He reports the frequency of bowel movements has decreased. He is still has blood in his stools. Reports the amount of blood is decreased. He is tolerating low fiber diet. Reports pain is about the same. He complains of diffuse pain but more on the left. Afebrile. WBC 7.36. hgb 11.1 Stool culture negative so far PHYSICAL EXAM: VITAL SIGNS: Reviewed. GENERAL: Well-developed in no acute distress. ABDOMEN: Soft. Nondistended. Diffuse tenderness. No rebound or guarding noted. NEUROLOGIC: Alert and oriented. Cranial nerves II through XII grossly intact. ASSESSMENT: 1. Ulcerative colitis exacerbation 2. Recent norovirus infection 3 weeks ago PLAN: -No surgical intervention planned -Continue IV steroids per GI service -Continue supportive care -Continue low fiber diet Physician Senior Controls Engineer note has been reviewed by physician. Signing provider agrees with the documented findings, assessment, and plan of care. Objective - Vital Signs Vital signs: Vital Signs Temp 98.2 F 12/15/24 07:04 Pulse 61 12/15/24 07:04 Resp 18 12/15/24 07:04 BP 120/72 12/15/24 07:04 Pulse Ox 100 12/15/24 07:04 FiO2 Intake & Output 12/14/24 12/15/24 12/15/24 18:59 06:59 18:59 Intake Total 120 Balance 120 Weight 61.235 kg Intake: Oral 120 Other: Voiding Method Toilet Toilet # Voids 5 2 # Bowel Movements 5 - Labs CBC & Chem 7: 12/15/24 03:46 12/15/24 03:46 Labs: Abnormal Lab Results - Last 24 Hours (Table) 12/12/24 12/14/24 12/15/24 Range/Units 13:20 03:00 03:46 RBC 3.48 L (4.40-5.60) X 10*6/uL Hgb 11.1 L (13.0-17.0) g/dL Hct 33.0 L (39.6-50.0) % Lymphocytes # 0.47 L (0.90-5.00) X 10*3/uL Eosinophils # 0 L (0.04-0.35) X 10*3/uL ESR 25 H (0-15) mm/Hr Glucose (70-110) mg/dL Calcium (8.7-10.3) mg/dL Stool Calprotectin 1,760.0 H (<50) mcg/g 12/15/24 Range/Units 03:46 RBC (4.40-5.60) X 10*6/uL Hgb (13.0-17.0) g/dL Hct (39.6-50.0) % Lymphocytes # (0.90-5.00) X 10*3/uL Eosinophils # (0.04-0.35) X 10*3/uL ESR (0-15) mm/Hr Glucose 119 H (70-110) mg/dL Calcium 7.9 L (8.7-10.3) mg/dL Stool Calprotectin (<50) mcg/g Microbiology - Last 24 Hours (Table) 12/12/24 13:20 Stool Culture - Preliminary Stool
[2024-12-15] MEDS: BALSALAZIDE DISODIUM 750 MG CAPSULE PO SCH (13:04)
--- NOTE | 2024-12-15 14:26 | P.PN ---
Subjective Progress Note Date: 12/15/24 Principal diagnosis: Ulcerative colitis exacerbation This is a pleasant 39-year-old male with a history of ulcerative colitis diagnosed 6 to 7 years ago who presented to the emergency department with complaints of multiple loose bloody bowel movements. States he has been follow ing with gastroenterology he was recently seen by Shahla and started on budesonide about a week ago without any improvement. He states he has been having 10-30 bowel movements a day. He has multiple dietary sensitivities. He denies any nausea or vomiting, he has been afebrile. States symptoms started after he had contact with family members with stomach flu and patient did end up positive with norovirus. States he lost about 15 pounds over last 1 months duration. On admission CRP was elevated, he had leukocytosis however states he has been afebrile. Medical team started him on IV antibiotics however patient has been refusing to take them. He was started on IV steroids. Symptoms are i mproving with only 3 bowel movements today. Denies any abdominal pain. 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 Rest of colon appeared normal. Recent outpatient stool samples from 11/30/2024 negative for C. difficile, positive for lactoferrin stool calprotectin 331, positive for norovirus C. difficile negative, stool lactoferrin positive, stool calprotectin elevated 12/15/2024 Patient seen and examined today as a follow-up. He wrote down that he had about 10-12 bowel movements all day yesterday and through the night. This morning he has had 2. He states that stool amount is improving. He is having small amount of blood following bowel movements. Abdominal pain improving. He is tolerating his diet. Stool calprotectin 1760. No leukocytosis, patient is afebrile. Denies any fevers or chills. Objective - Vital Signs Vital signs: Vital Signs Temp 98.3 F 12/15/24 13:10 Pulse 59 L 12/15/24 13:10 Resp 16 12/15/24 13:10 BP 124/63 12/15/24 13:10 Pulse Ox 98 12/15/24 13:10 FiO2 Intake & Output 12/14/24 12/15/24 12/15/24 18:59 06:59 18:59 Intake Total 120 Balance 120 Weight 61.235 kg Intake: Oral 120 Other: Voiding Method Toilet Toilet # Voids 5 2 # Bowel Movements 5 - Exam General appearance: The patient is alert, oriented, appears in no acute distress. HET: Head is normocephalic and atraumatic. Conjunctiva pink. Sclera anicteric. Neck: Supple without lymphadenopathy. Abdomen: Soft, nontender, thin, nondistended. Extremities: Normal skin color and turgor. No pedal edema Skin: No rashes, no jaundice Neurological: No focal deficits. Alert and oriented. - Labs CBC & Chem 7: 12/15/24 03:46 12/15/24 03:46 Labs: Abnormal Lab Results - Last 24 Hours (Table) 12/12/24 12/14/24 12/15/24 Range/Units 13:20 03:00 03:46 RBC 3.48 L (4.40-5.60) X 10*6/uL Hgb 11.1 L (13.0-17.0) g/dL Hct 33.0 L (39.6-50.0) % Lymphocytes # 0.47 L (0.90-5.00) X 10*3/uL Eosinophils # 0 L (0.04-0.35) X 10*3/uL ESR 25 H (0-15) mm/Hr Glucose (70-110) mg/dL Calcium (8.7-10.3) mg/dL Stool Calprotectin 1,760.0 H (<50) mcg/g 12/15/24 Range/Units 03:46 RBC (4.40-5.60) X 10*6/uL Hgb (13.0-17.0) g/dL Hct (39.6-50.0) % Lymphocytes # (0.90-5.00) X 10*3/uL Eosinophils # (0.04-0.35) X 10*3/uL ESR (0-15) mm/Hr Glucose 119 H (70-110) mg/dL Calcium 7.9 L (8.7-10.3) mg/dL Stool Calprotectin (<50) mcg/g Microbiology - Last 24 Hours (Table) 12/12/24 13:20 Stool Culture - Preliminary Stool Assessment and Plan (1) Ulcerative colitis Narrative/Plan: 39-year-old male with ulcerative colitis presenting with increased stool output with blood over the last 3 weeks duration with outpatient treatment failure. Patient was exposed to norovirus and did test positive about 3 weeks ago which likely caused a flareup in his ulcerative colitis. Admitted for IV steroids, symptomatic treatment last colonoscopy in February 2024 no plans to repeat c olonoscopy. Continue symptomatic and supportive care. Current Visit: Yes Status: Acute Code(s): K51.90 - ULCERATIVE COLITIS, UNSPECIFIED, WITHOUT COMPLICATIONS SNOMED Code(s): 63624190 (2) Diarrhea Current Visit: Yes Status: Acute Code(s): R19.7 - DIARRHEA, UNSPECIFIED SNOMED Code(s): 15301616 Plan: 1. Continue symptomatic and supportive care 2. Patient with multiple food intolerances, can have bland diet 3. Continue IV Solu-Medrol 20 mg every 8 hours will plan to transition to prednisone 40 mg daily taper dose in the next 1 to 2 days 4. No need for IV antibiotics 5. Continue balsalazide 7. Continue IV hydration 8. No plans on endoscopic evaluation Thank you for this consultation, we will continue to follow. Dr. Wilfrido Song I agree with the dictator's note, documented as a scribe by Khadijah Nelson.
--- NOTE | 2024-12-15 15:45 | P.PN ---
Subjective Interval History: History of present illness: 39-year-old male patient with past medical history significant for ulcerative colitis who presented to ER with a complaint of abdominal pain, and bloody diarrhea. Patient reported that he had norovirus about 3 weeks ago when patient had fever, watery diarrhea. Patient stated that his diarrhea has not improved since then, patient is having multiple bowel movements more than 20 every day, also reported on and off blood in the stools. Patient reported that he has been getting worse for the last 3 days and is unable to sleep as patient need to go to the bathroom almost every hour. Patient reported that he has followed up with gastroenterology twice over the last couple weeks, he was started on budesonide however this has not been helping. Patient is afebrile, heart rate 89, respiratory rate 17, blood pressure 110/71, saturating 99% on room air. WBCs 18.1, hemoglobin 15.4, platelet 409. Sodium 131, potassium 3.5, chloride 92, CO2 29, BUN 11, creatinine 0.64. Liver profile unremarkable CRP 7.5. Stool lactoferrin positive C. difficile negative CT abdomen pelvis showed diffuse colitis likely from infectious/inflammatory process. 12/14--patient was seen and examined today, continues to have diarrhea, slightly better as compared to yesterday, remained afebrile, heart rate 91, respiratory rate 18, blood pressure 110/63, saturating 97% on room air. WBCs 8.01, hemoglobin 12.1, platelet 318. BMP unremarkable. C. difficile negative. General surgery following. GI consulted. 12/15--patient was seen and examined today. Still complains of multiple episodes of diarrhea, improved as compared to yesterday. Remained afebrile, vital stable. WBCs 7.3, hemoglobin 11.1, platelets 310. BMP unremarkable. GI following, recommended to continue symptomatic and supportive care, continue IV Solu-Medrol, plan to prednisone taper at discharge, continue balsalazide. Assessment and plan: Acute ulcerative colitis flareup: History of ulcerative colitis, follows gastroenterology, takes Colazal, was started on budesonide as outpatient for bloody diarrhea for 3 weeks Antiemetics, pain control IV fluids Solu-Medrol 20 mg every 8 hours Balsalazide Stool culture, stool calprotectin C. difficile negative General Surgery consulted and following GI consulted--continue current treatment, no plan for endoscopy. DVT prophylaxis SCD Monitor vital signs and labs Labs and medication were reviewed. Continue same treatment. Further recommendations as per clinical course of the patient PHYSICAL EXAMINATION: GENERAL: The patient is A&O x3, NAD HEENT: EOMI, Sclerae anicteric, Moist Mucous membranes Neck: Supple, Non tender, No JVD PULMONARY: Equal breath souds B/L, No wheezing, No crackles. CARDIOVASCULAR: S1, S2 present. No murmurs, rubs, or gallops. ABDOMEN: Soft, nontender, nondistended, normoactive bowel sounds. No guarding or rebound tenderness. MUSCULOSKELETAL: No edema, No cyanosis. No clubbing. Normal ROM. Intact peripheral pulses. NEUROLOGICAL: CN 2-12 grossly intact. No FND REVIEW OF SYSTEMS: CONSTITUTIONAL: No fever or chills. CARDIOVASCULAR: No chest pain, palpitations or syncope. PULMONARY: No shortness of breath, no cough, sore throat. GASTROINTESTINAL: Complains of diarrhea. No nausea vomiting. : No Dysuria, urgency, frequency. Extremities: No edema. NEUROLOGICAL: No headaches, no weakness, or numbness Dictation was produced using [employer] dictation software. please excuse any grammatical, word or spelling errors. Objective - Vital Signs Vital signs: Vital Signs Temp 98.3 F 12/15/24 13:10 Pulse 59 L 12/15/24 13:10 Resp 16 12/15/24 13:10 BP 124/63 12/15/24 13:10 Pulse Ox 98 12/15/24 13:10 FiO2 Intake & Output 12/14/24 12/15/24 12/15/24 18:59 06:59 18:59 Intake Total 120 Balance 120 Weight 61.235 kg Intake: Oral 120 Other: Voiding Method Toilet Toilet # Voids 5 2 # Bowel Movements 5 - Labs CBC & Chem 7: 12/15/24 03:46 12/15/24 03:46 Labs: Abnormal Lab Results - Last 24 Hours (Table) 12/14/24 12/15/24 12/15/24 Range/Units 03:00 03:46 03:46 RBC 3.48 L (4.40-5.60) X 10*6/uL Hgb 11.1 L (13.0-17.0) g/dL Hct 33.0 L (39.6-50.0) % Lymphocytes # 0.47 L (0.90-5.00) X 10*3/uL Eosinophils # 0 L (0.04-0.35) X 10*3/uL ESR 25 H (0-15) mm/Hr Glucose 119 H (70-110) mg/dL Calcium 7.9 L (8.7-10.3) mg/dL Microbiology - Last 24 Hours (Table) 12/12/24 13:20 Stool Culture - Preliminary Stool
[2024-12-16 09:31] LABS: Basophils # (A) 0.03 X 10*3/uL (0.00-0.10); Basophils % (A) 0.4 %; Eosinophils # (A) 0 X 10*3/uL (0.04-0.35); Eosinophils % (A) 0 %; HCT 32.7 % (39.6-50.0); HGB 11.4 g/dL (13.0-17.0); Lymphocytes # (A) 0.58 X 10*3/uL (0.90-5.00); Lymphocytes % (A) 8.1 %; MCH 32.7 pg (27.0-32.0); MCHC 34.9 g/dL (32.0-37.0); MCV 93.7 FL (80.0-97.0); Mean Platelet Volume 10.5 FL (9.5-12.2); Monocytes # (A) 0.67 X 10*3/uL (0.20-1.00); Monocytes % (A) 9.3 %; NRBC Per 100 WBC 0 X 10*3/uL (0.00-0.01); Neutrophils # (A) 5.86 X 10*3/uL (1.80-7.70); Neutrophils % (A) 81.6 %; Platelet Count 283 X 10*3/uL (140-440); RBC 3.49 X 10*6/uL (4.40-5.60); RDW 11.9 % (11.5-14.5); WBC 7.18 X 10*3/uL (4.50-10.00)
[2024-12-16 09:32] LABS: ALT 9 U/L (10-49); AST 12 U/L (14-35); Albumin 2.9 g/dL (3.8-4.9); Albumin/Globulin Ratio 1.12 Ratio (1.60-3.17); Alkaline Phosphatase 55 U/L (41-126); Blood Urea Nitrogen 9.6 mg/dL (9.0-27.0); Calcium 8.2 mg/dL (8.7-10.3); Carbon Dioxide 27.2 mmol/L (21.6-31.8); Chloride 100 mmol/L (96-109); Globulin 2.6 g/dL (1.6-3.3); Glucose 113 mg/dL (70-110); Potassium 4.3 mmol/L (3.5-5.5); Sodium 136 mmol/L (135-145); Total Bilirubin <0.2 mg/dL (0.3-1.2); Total Protein 5.5 g/dL (6.2-8.2)
[2024-12-16 10:51] LABS: Basophils % (A) 0 %; Eosinophils % (A) 0 %; HCT 37.7 % (39.0-53.0); Lymphocytes # (A) 0.7 k/uL (1.0-4.8); Lymphocytes % (A) 8 %; MCH 31.6 pg (25.0-35.0); MCHC 32.7 g/dL (31.0-37.0); MCV 96.6 fL (80.0-100.0); Mean Platelet Volume 7.2; Monocytes # (A) 0.7 k/uL (0-1.0); Monocytes % (A) 8 %; Neutrophils # (A) 7.1 k/uL (1.3-7.7); Neutrophils % (A) 83 %; Platelet Count 330 k/uL (150-450); RDW 11.8 % (11.5-15.5); WBC 8.6 k/uL (3.8-10.6)
[2024-12-16 10:53] LABS: HGB 12.3 gm/dL (13.0-17.5)
--- NOTE | 2024-12-16 11:07 | P.PN ---
Subjective Progress Note Date: 12/16/24 SURGICAL PROGRESS NOTE CHIEF COMPLAINT: Ulcerative colitis exacerbation HISTORY OF PRESENT ILLNESS: Patient is up and walking in his room. He continues to report abdominal pain and having blood in his stools. He did eat a low fiber diet. He reports overall not feeling any better. Patient is not using any pain medication. Afebrile. WBC is 8.6 Hgb 12.3 PHYSICAL EXAM: VITAL SIGNS: Reviewed. GENERAL: Well-developed in no acute distress. Patient declined physical exam ASSESSMENT: 1. Ulcerative colitis exacerbation 2. Recent norovirus infection 3 weeks ago PLAN: -No surgical intervention planned at this time -Continue IV steroids per GI service -Await further GI recommendations -Continue supportive care -Continue low fiber diet Physician Stunt Double note has been reviewed by physician. Signing provider agrees with the documented findings, assessment, and plan of care. Attestation Patient seen and examined at bedside on 12/16/2024. Presented with chief complaint of abdominal pain and found to have ulcerative colitis exacerbation. Today he states that he had multiple bowel movements and is having some increased abdominal pain. He is being evaluated by GI service for this exace rbation with recommendation for immunologic therapy, however patient is refusing. Continue IV steroids at this time. Diet was discussed with patient as he has significant restrictions. Case discussed with GI team. Jeremiah Person, Objective - Vital Signs Vital signs: Vital Signs Temp 98.5 F 12/16/24 07:21 Pulse 68 12/16/24 07:21 Resp 18 12/16/24 07:21 BP 106/54 12/16/24 07:21 Pulse Ox 98 12/16/24 07:21 FiO2 Intake & Output 12/15/24 12/16/24 12/16/24 18:59 06:59 18:59 Other: Voiding Method Toilet # Voids 3 # Bowel Movements 9 - Labs CBC & Chem 7: 12/17/24 05:23 12/17/24 05:23 Labs: Abnormal Lab Results - Last 24 Hours (Table) 12/16/24 12/16/24 12/16/24 Range/Units 05:19 05:19 10:22 RBC 3.49 L 3.90 L (4.40-5.60) X 10*6/uL Hgb 11.4 L 12.3 L D (13.0-17.0) g/dL Hct 32.7 L 37.7 L (39.6-50.0) % MCH 32.7 H (27.0-32.0) pg Lymphocytes # 0.58 L 0.7 L (0.90-5.00) X 10*3/uL Eosinophils # 0 L (0.04-0.35) X 10*3/uL Creatinine 0.5 L (0.6-1.5) mg/dL Glucose 113 H (70-110) mg/dL Calcium 8.2 L (8.7-10.3) mg/dL Total Bilirubin <0.2 L (0.3-1.2) mg/dL AST 12 L (14-35) U/L ALT 9 L (10-49) U/L Total Protein 5.5 L (6.2-8.2) g/dL Albumin 2.9 L (3.8-4.9) g/dL Albumin/Globulin Ratio 1.12 L (1.60-3.17) Ratio Microbiology - Last 24 Hours (Table) 12/12/24 13:20 Stool Culture - Final Stool
--- NOTE | 2024-12-16 13:58 | P.PN ---
Subjective Progress Note Date: 12/16/24 Principal diagnosis: Ulcerative colitis exacerbation This is a pleasant 39-year-old male with a history of ulcerative colitis diagnosed 6 to 7 years ago who presented to the emergency department with complaints of multiple loose bloody bowel movements. States he has been follow ing with gastroenterology he was recently seen by Shahla and started on budesonide about a week ago without any improvement. He states he has been having 10-30 bowel movements a day. He has multiple dietary sensitivities. He denies any nausea or vomiting, he has been afebrile. States symptoms started after he had contact with family members with stomach flu and patient did end up positive with norovirus. States he lost about 15 pounds over last 1 months duration. On admission CRP was elevated, he had leukocytosis however states he has been afebrile. Medical team started him on IV antibiotics however patient has been refusing to take them. He was started on IV steroids. Symptoms are i mproving with only 3 bowel movements today. Denies any abdominal pain. 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 Rest of colon appeared normal. Recent outpatient stool samples from 11/30/2024 negative for C. difficile, positive for lactoferrin stool calprotectin 331, positive for norovirus C. difficile negative, stool lactoferrin positive, stool calprotectin elevated 12/15/2024 Patient seen and examined today as a follow-up. He wrote down that he had about 10-12 bowel movements all day yesterday and through the night. This morning he has had 2. He states that stool amount is improving. He is having small amount of blood following bowel movements. Abdominal pain improving. He is tolerating his diet. Stool calprotectin 1760. No leukocytosis, patient is afebrile. Denies any fevers or chills. 12/16/2024 Patient seen and examined as a follow up. States he feels like last night and today he is doing worse. Increased diarrhea and frequency, mixed with blood. No nause or vomiting. Abdominal pain mostly in LLQ. Eating small meals. Stool cultures negative. Hemoglobin stable at 12.3. Objective - Vital Signs Vital signs: Vital Signs Temp 98.5 F 12/16/24 07:21 Pulse 68 12/16/24 07:21 Resp 18 12/16/24 07:21 BP 106/54 12/16/24 07:21 Pulse Ox 98 12/16/24 07:21 FiO2 Intake & Output 12/15/24 12/16/24 12/16/24 18:59 06:59 18:59 Other: Voiding Method Toilet # Voids 3 # Bowel Movements 9 - Exam General appearance: The patient is alert, oriented, appears in no acute distress. HET: Head is normocephalic and atraumatic. Conjunctiva pink. Sclera anicteric. Neck: Supple without lymphadenopathy. Abdomen: Soft, LLQ tenderness, thin, nondistended. Extremities: Normal skin color and turgor. No pedal edema Skin: No rashes, no jaundice Neurological: No focal deficits. Alert and oriented. - Labs CBC & Chem 7: 12/16/24 10:22 12/16/24 05:19 Labs: Abnormal Lab Results - Last 24 Hours (Table) 12/14/24 12/16/24 12/16/24 Range/Units 03:00 05:19 05:19 RBC 3.49 L (4.40-5.60) X 10*6/uL Hgb 11.4 L (13.0-17.0) g/dL Hct 32.7 L (39.6-50.0) % MCH 32.7 H (27.0-32.0) pg Lymphocytes # 0.58 L (0.90-5.00) X 10*3/uL Eosinophils # 0 L (0.04-0.35) X 10*3/uL ESR 25 H (0-15) mm/Hr Creatinine 0.5 L (0.6-1.5) mg/dL Glucose 113 H (70-110) mg/dL Calcium 8.2 L (8.7-10.3) mg/dL Total Bilirubin <0.2 L (0.3-1.2) mg/dL AST 12 L (14-35) U/L ALT 9 L (10-49) U/L Total Protein 5.5 L (6.2-8.2) g/dL Albumin 2.9 L (3.8-4.9) g/dL Albumin/Globulin Ratio 1.12 L (1.60-3.17) Ratio Microbiology - Last 24 Hours (Table) 12/12/24 13:20 Stool Culture - Final Stool Assessment and Plan (1) Ulcerative colitis Narrative/Plan: 39-year-old male with ulcerative colitis presenting with increased stool output with blood over the last 3 weeks duration with outpatient treatment failure. Patient was exposed to norovirus and did test positive about 3 weeks ago which likely caused a flareup in his ulcerative colitis. Admitted for IV steroids, symptomatic treatment last colonoscopy in February 2024 no plans to repeat colonoscopy. Continue symptomatic and supportive care. Current Visit: Yes Status: Acute Code(s): K51.90 - ULCERATIVE COLITIS, UNSPECIFIED, WITHOUT COMPLICATIONS SNOMED Code(s): 81126432 (2) Diarrhea Current Visit: Yes Status: Acute Code(s): R19.7 - DIARRHEA, UNSPECIFIED SNOMED Code(s): 99494479 Plan: 1. Continue symptomatic and supportive care 2. Patient with multiple food intolerances, can have bland diet 3. Continue IV Solu-Medrol 20 mg every 8 hours will plan to transition to prednisone 40 mg daily taper dose in the next 1 to 2 days 4. No need for IV antibiotics 5. Continue balsalazide 7. Continue IV hydration 8. No plans on endoscopic evaluation unless continues to have no improvement 9. Repeat CRP and Sed rate 10. Anticipate discharge in the next 1 to 2 days if diarrhea improves Thank you for this consultation, we will continue to follow. Dr. Wilfrido Song I agree with the dictator's note, documented as a scribe by Khadijah Nelson.
--- NOTE | 2024-12-16 14:18 | P.PN ---
Subjective Interval History: History of present illness: 39-year-old male patient with past medical history significant for ulcerative colitis who presented to ER with a complaint of abdominal pain, and bloody diarrhea. Patient reported that he had norovirus about 3 weeks ago when patient had fever, watery diarrhea. Patient stated that his diarrhea has not improved since then, patient is having multiple bowel movements more than 20 every day, also reported on and off blood in the stools. Patient reported that he has been getting worse for the last 3 days and is unable to sleep as patient need to go to the bathroom almost every hour. Patient reported that he has followed up with gastroenterology twice over the last couple weeks, he was started on budesonide however this has not been helping. Patient is afebrile, heart rate 89, respiratory rate 17, blood pressure 110/71, saturating 99% on room air. WBCs 18.1, hemoglobin 15.4, platelet 409. Sodium 131, potassium 3.5, chloride 92, CO2 29, BUN 11, creatinine 0.64. Liver profile unremarkable CRP 7.5. Stool lactoferrin positive C. difficile negative CT abdomen pelvis showed diffuse colitis likely from infectious/inflammatory process. 12/14--patient was seen and examined today, continues to have diarrhea, slightly better as compared to yesterday, remained afebrile, heart rate 91, respiratory rate 18, blood pressure 110/63, saturating 97% on room air. WBCs 8.01, hemoglobin 12.1, platelet 318. BMP unremarkable. C. difficile negative. General surgery following. GI consulted. 12/15--patient was seen and examined today. Still complains of multiple episodes of diarrhea, improved as compared to yesterday. Remained afebrile, vital stable. WBCs 7.3, hemoglobin 11.1, platelets 310. BMP unremarkable. GI following, recommended to continue symptomatic and supportive care, continue IV Solu-Medrol, plan to prednisone taper at discharge, continue balsalazide. 12/16--patient was seen and examined today. Patient stated that diarrhea has gotten worse as compared to yesterday still reports blood in the stool. Patient is afebrile, heart rate 67, respiratory rate 18, blood pressure 119/75, saturating 99% on room air. WBCs 8.6, hemoglobin stable 12.3, platelet 330. Currently on IV Solu-Medrol, gastroenterology following, recommended continue symptomatic and supportive care. Assessment and plan: Acute ulcerative colitis flareup: History of ulcerative colitis, follows gastroenterology, takes Colazal, was started on budesonide as outpatient for bloody diarrhea for 3 weeks Antiemetics, pain control IV fluids Solu-Medrol 20 mg every 8 hours Balsalazide Stool culture, stool calprotectin C. difficile negative Monitor ESR/CRP General Surgery consulted and following GI consulted--continue current treatment, no plan for endoscopy. DVT prophylaxis SCD Monitor vital signs and labs Labs and medication were reviewed. Continue same treatment. Further recommendations as per clinical course of the patient PHYSICAL EXAMINATION: GENERAL: The patient is A&O x3, NAD HEENT: EOMI, Sclerae anicteric, Moist Mucous membranes Neck: Supple, Non tender, No JVD PULMONARY: Equal breath souds B/L, No wheezing, No crackles. CARDIOVASCULAR: S1, S2 present. No murmurs, rubs, or gallops. ABDOMEN: Soft, nontender, nondistended, normoactive bowel sounds. No guarding or rebound tenderness. MUSCULOSKELETAL: No edema, No cyanosis. No clubbing. Normal ROM. Intact peripheral pulses. NEUROLOGICAL: CN 2-12 grossly intact. No FND REVIEW OF SYSTEMS: CONSTITUTIONAL: No fever or chills. CARDIOVASCULAR: No chest pain, palpitations or syncope. PULMONARY: No shortness of breath, no cough, sore throat. GASTROINTESTINAL: Complains of diarrhea. No nausea vomiting. : No Dysuria, urgency, frequency. Extremities: No edema. NEUROLOGICAL: No headaches, no weakness, or numbness Dictation was produced using [employer] dictation software. please excuse any g rammatical, word or spelling errors. Objective - Vital Signs Vital signs: Vital Signs Temp 97.8 F 12/16/24 13:55 Pulse 67 12/16/24 13:55 Resp 18 12/16/24 13:55 BP 119/75 12/16/24 13:55 Pulse Ox 99 12/16/24 13:55 FiO2 Intake & Output 12/15/24 12/16/24 12/16/24 18:59 06:59 18:59 Other: Voiding Method Toilet Toilet # Voids 3 # Bowel Movements 9 - Labs CBC & Chem 7: 12/16/24 10:22 12/16/24 05:19 Labs: Abnormal Lab Results - Last 24 Hours (Table) 12/16/24 12/16/24 12/16/24 Range/Units 05:19 05:19 10:22 RBC 3.49 L 3.90 L (4.40-5.60) X 10*6/uL Hgb 11.4 L 12.3 L D (13.0-17.0) g/dL Hct 32.7 L 37.7 L (39.6-50.0) % MCH 32.7 H (27.0-32.0) pg Lymphocytes # 0.58 L 0.7 L (0.90-5.00) X 10*3/uL Eosinophils # 0 L (0.04-0.35) X 10*3/uL Creatinine 0.5 L (0.6-1.5) mg/dL Glucose 113 H (70-110) mg/dL Calcium 8.2 L (8.7-10.3) mg/dL Total Bilirubin <0.2 L (0.3-1.2) mg/dL AST 12 L (14-35) U/L ALT 9 L (10-49) U/L Total Protein 5.5 L (6.2-8.2) g/dL Albumin 2.9 L (3.8-4.9) g/dL Albumin/Globulin Ratio 1.12 L (1.60-3.17) Ratio Microbiology - Last 24 Hours (Table) 12/12/24 13:20 Stool Culture - Final Stool
[2024-12-16] MEDS: methylPREDNISolone SOD SUCCI 40 MG/ML 1 ML VIAL IV SCH (16:26)
[2024-12-17 09:11] LABS: BUN/Creat Ratio 15.67 Ratio (12.00-20.00); Blood Urea Nitrogen 9.4 mg/dL (9.0-27.0); Calcium 8.4 mg/dL (8.7-10.3); Carbon Dioxide 27.9 mmol/L (21.6-31.8); Chloride 101 mmol/L (96-109); Glucose 115 mg/dL (70-110); Potassium 4.4 mmol/L (3.5-5.5); Sodium 136 mmol/L (135-145)
[2024-12-17 09:20] LABS: Basophils # (A) 0.01 X 10*3/uL (0.00-0.10); Basophils % (A) 0.1 %; Eosinophils # (A) 0 X 10*3/uL (0.04-0.35); Eosinophils % (A) 0 %; HCT 34.3 % (39.6-50.0); HGB 11.8 g/dL (13.0-17.0); Lymphocytes # (A) 0.56 X 10*3/uL (0.90-5.00); Lymphocytes % (A) 7.1 %; MCH 32.5 pg (27.0-32.0); MCHC 34.4 g/dL (32.0-37.0); MCV 94.5 FL (80.0-97.0); Mean Platelet Volume 10.7 FL (9.5-12.2); Monocytes # (A) 0.47 X 10*3/uL (0.20-1.00); NRBC Per 100 WBC 0 X 10*3/uL (0.00-0.01); Neutrophils # (A) 6.78 X 10*3/uL (1.80-7.70); Neutrophils % (A) 86.4 %; Platelet Count 305 X 10*3/uL (140-440); RBC 3.63 X 10*6/uL (4.40-5.60); RDW 11.7 % (11.5-14.5); WBC 7.85 X 10*3/uL (4.50-10.00)
--- NOTE | 2024-12-17 12:27 | P.PN ---
Subjective Progress Note Date: 12/17/24 SURGICAL PROGRESS NOTE CHIEF COMPLAINT: Ulcerative colitis exacerbation HISTORY OF PRESENT ILLNESS: Patient noted some improvement. His bowel movements are less frequent. And he is not having blood with every stool. He did drink milk yesterday and had increase in flatus after the milk. He was able to eat rice this morning. He reports difficulty drinking the Ensure due to the amount of sugar in it causes increased bowel movements and flatus. Patient's IV steroids were increased yesterday by GI service. WBC 7.85 Hgb 11.8 PHYSICAL EXAM: VITAL SIGNS: Reviewed. GENERAL: Well-developed in no acute distress. Abdomen: soft. diffuse tenderness ASSESSMENT: 1. Ulcerative colitis exacerbation 2. Recent norovirus infection 3 weeks ago PLAN: -No surgical intervention planned at this time -IV steroids per GI service -Continue supportive care -Continue low fiber diet -Encourage patient increase activity level Physician Arc Trimmer note has been reviewed by physician. Signing provider agrees with the documented findings, assessment, and plan of care. Objective - Vital Signs Vital signs: Vital Signs Temp 98.2 F 12/17/24 07:16 Pulse 70 12/17/24 07:16 Resp 16 12/17/24 07:16 BP 121/79 12/17/24 07:16 Pulse Ox 100 12/17/24 07:16 FiO2 Intake & Output 12/16/24 12/17/24 12/17/24 18:59 06:59 18:59 Intake Total 240 Balance 240 Intake: Oral 240 Other: Voiding Method Toilet Toilet # Voids 3 3 # Bowel Movements 12 - Labs CBC & Chem 7: 12/17/24 05:23 12/17/24 05:23 Labs: Abnormal Lab Results - Last 24 Hours (Table) 12/16/24 12/16/24 12/17/24 Range/Units 05:19 05:19 05:23 RBC 3.63 L (4.40-5.60) X 10*6/uL Hgb 11.8 L (13.0-17.0) g/dL Hct 34.3 L (39.6-50.0) % MCH 32.5 H (27.0-32.0) pg Lymphocytes # 0.56 L (0.90-5.00) X 10*3/uL Eosinophils # 0 L (0.04-0.35) X 10*3/uL ESR 28 H (0-15) mm/Hr Glucose (70-110) mg/dL Calcium (8.7-10.3) mg/dL C-Reactive Protein 1.80 H (0.00-0.80) mg/dL 12/17/24 Range/Units 05:23 RBC (4.40-5.60) X 10*6/uL Hgb (13.0-17.0) g/dL Hct (39.6-50.0) % MCH (27.0-32.0) pg Lymphocytes # (0.90-5.00) X 10*3/uL Eosinophils # (0.04-0.35) X 10*3/uL ESR (0-15) mm/Hr Glucose 115 H (70-110) mg/dL Calcium 8.4 L (8.7-10.3) mg/dL C-Reactive Protein (0.00-0.80) mg/dL Microbiology - Last 24 Hours (Table) 12/12/24 13:20 Stool Culture - Final Stool
--- NOTE | 2024-12-17 14:54 | P.PN ---
Subjective Interval History: History of present illness: 39-year-old male patient with past medical history significant for ulcerative colitis who presented to ER with a complaint of abdominal pain, and bloody diarrhea. Patient reported that he had norovirus about 3 weeks ago when patient had fever, watery diarrhea. Patient stated that his diarrhea has not improved since then, patient is having multiple bowel movements more than 20 every day, also reported on and off blood in the stools. Patient reported that he has been getting worse for the last 3 days and is unable to sleep as patient need to go to the bathroom almost every hour. Patient reported that he has followed up with gastroenterology twice over the last couple weeks, he was started on budesonide however this has not been helping. Patient is afebrile, heart rate 89, respiratory rate 17, blood pressure 110/71, saturating 99% on room air. WBCs 18.1, hemoglobin 15.4, platelet 409. Sodium 131, potassium 3.5, chloride 92, CO2 29, BUN 11, creatinine 0.64. Liver profile unremarkable CRP 7.5. Stool lactoferrin positive C. difficile negative CT abdomen pelvis showed diffuse colitis likely from infectious/inflammatory process. 12/14--patient was seen and examined today, continues to have diarrhea, slightly better as compared to yesterday, remained afebrile, heart rate 91, respiratory rate 18, blood pressure 110/63, saturating 97% on room air. WBCs 8.01, hemoglobin 12.1, platelet 318. BMP unremarkable. C. difficile negative. General surgery following. GI consulted. 12/15--patient was seen and examined today. Still complains of multiple episodes of diarrhea, improved as compared to yesterday. Remained afebrile, vital stable. WBCs 7.3, hemoglobin 11.1, platelets 310. BMP unremarkable. GI following, recommended to continue symptomatic and supportive care, continue IV Solu-Medrol, plan to prednisone taper at discharge, continue balsalazide. 12/16--patient was seen and examined today. Patient stated that diarrhea has gotten worse as compared to yesterday still reports blood in the stool. Patient is afebrile, heart rate 67, respiratory rate 18, blood pressure 119/75, saturating 99% on room air. WBCs 8.6, hemoglobin stable 12.3, platelet 330. Currently on IV Solu-Medrol, gastroenterology following, recommended continue symptomatic and supportive care. 12/17--patient was seen and examined today. Afebrile, heart rate 70, respiratory rate 16, blood pressure 120 over , saturating 100% on room air. WBC 7.8, hemoglobin 11.8, platelet 305. BMP unremarkable. Continues complain of diarrhea more than 20 episodes in 24 hours. Remains on IV steroids Solu- Medrol. Gastroenterology following. Continue IV fluids. Assessment and plan: Acute ulcerative colitis flareup: History of ulcerative colitis, follows gastroenterology, takes Colazal, was started on budesonide as outpatient for bloody diarrhea for 3 weeks Antiemetics, pain control IV fluids Solu-Medrol 20 mg every 8 hours Balsalazide Stool culture, stool calprotectin C. difficile negative Monitor ESR/CRP General Surgery consulted and following GI consulted--continue current treatment, no plan for endoscopy. DVT prophylaxis SCD Monitor vital signs and labs Labs and medication were reviewed. Continue same treatment. Further recommendations as per clinical course of the patient PHYSICAL EXAMINATION: GENERAL: The patient is A&O x3, NAD HEENT: EOMI, Sclerae anicteric, Moist Mucous membranes Neck: Supple, Non tender, No JVD PULMONARY: Equal breath souds B/L, No wheezing, No crackles. CARDIOVASCULAR: S1, S2 present. No murmurs, rubs, or gallops. ABDOMEN: Soft, nontender, nondistended, normoactive bowel sounds. No guarding or rebound tenderness. MUSCULOSKELETAL: No edema, No cyanosis. No clubbing. Normal ROM. Intact peripheral pulses. NEUROLOGICAL: CN 2-12 grossly intact. No FND REVIEW OF SYSTEMS: CONSTITUTIONAL: No fever or chills. CARDIOVASCULAR: No chest pain, palpitations or syncope. PULMONARY: No shortness of breath, no cough, sore throat. GASTROINTESTINAL: Complains of diarrhea. No nausea vomiting. : No Dysuria, urgency, frequency. Extremities: No edema. NEUROLOGICAL: No headaches, no weakness, or numbness Dictation was produced using [employer] dictation software. please excuse any grammatical, word or spelling errors. Objective - Vital Signs Vital signs: Vital Signs Temp 98.2 F 12/17/24 07:16 Pulse 70 12/17/24 07:16 Resp 16 12/17/24 07:16 BP 121/79 12/17/24 07:16 Pulse Ox 100 12/17/24 07:16 FiO2 Intake & Output 12/16/24 12/17/24 12/17/24 18:59 06:59 18:59 Intake Total 240 Balance 240 Intake: Oral 240 Other: Voiding Method Toilet Toilet Toilet # Voids 3 3 # Bowel Movements 12 - Labs CBC & Chem 7: 12/17/24 05:23 12/17/24 05:23 Labs: Abnormal Lab Results - Last 24 Hours (Table) 12/16/24 12/17/24 12/17/24 Range/Units 05:19 05:23 05:23 RBC 3.63 L (4.40-5.60) X 10*6/uL Hgb 11.8 L (13.0-17.0) g/dL Hct 34.3 L (39.6-50.0) % MCH 32.5 H (27.0-32.0) pg Lymphocytes # 0.56 L (0.90-5.00) X 10*3/uL Eosinophils # 0 L (0.04-0.35) X 10*3/uL ESR 28 H (0-15) mm/Hr Glucose 115 H (70-110) mg/dL Calcium 8.4 L (8.7-10.3) mg/dL
--- NOTE | 2024-12-17 16:18 | P.PN ---
Subjective Progress Note Date: 12/17/24 Principal diagnosis: Ulcerative colitis exacerbation This is a pleasant 39-year-old male with a history of ulcerative colitis diagnosed 6 to 7 years ago who presented to the emergency department with complaints of multiple loose bloody bowel movements. States he has been follow ing with gastroenterology he was recently seen by Shahla and started on budesonide about a week ago without any improvement. He states he has been having 10-30 bowel movements a day. He has multiple dietary sensitivities. He denies any nausea or vomiting, he has been afebrile. States symptoms started after he had contact with family members with stomach flu and patient did end up positive with norovirus. States he lost about 15 pounds over last 1 months duration. On admission CRP was elevated, he had leukocytosis however states he has been afebrile. Medical team started him on IV antibiotics however patient has been refusing to take them. He was started on IV steroids. Symptoms are i mproving with only 3 bowel movements today. Denies any abdominal pain. 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 Rest of colon appeared normal. Recent outpatient stool samples from 11/30/2024 negative for C. difficile, positive for lactoferrin stool calprotectin 331, positive for norovirus C. difficile negative, stool lactoferrin positive, stool calprotectin elevated 12/15/2024 Patient seen and examined today as a follow-up. He wrote down that he had about 10-12 bowel movements all day yesterday and through the night. This morning he has had 2. He states that stool amount is improving. He is having small amount of blood following bowel movements. Abdominal pain improving. He is tolerating his diet. Stool calprotectin 1760. No leukocytosis, patient is afebrile. Denies any fevers or chills. 12/16/2024 Patient seen and examined as a follow up. States he feels like last night and today he is doing worse. Increased diarrhea and frequency, mixed with blood. No nause or vomiting. Abdominal pain mostly in LLQ. Eating small meals. Stool cultures negative. Hemoglobin stable at 12.3. 12/17/2024 Patient seen and examined today as a follow-up. He states that he tried to drink milk and that gave him an upset stomach and gas and he believes he had some more loose stools however less blood noted in less amount. Patient is still not eating any hospital food and very limited food from home. Eating white rice about 3 times a day. Refusing Ensure drink. Hemoglobin remained stable, no leukocytosis. Sed rate 28 CRP 1.8. Objective - Vital Signs Vital signs: Vital Signs Temp 98.2 F 12/17/24 07:16 Pulse 70 12/17/24 07:16 Resp 16 12/17/24 07:16 BP 121/79 12/17/24 07:16 Pulse Ox 100 12/17/24 07:16 FiO2 Intake & Output 12/16/24 12/17/24 12/17/24 18:59 06:59 18:59 Intake Total 240 Balance 240 Intake: Oral 240 Other: Voiding Method Toilet Toilet # Voids 3 3 # Bowel Movements 12 - Exam General appearance: The patient is alert, oriented, appears in no acute distress. HET: Head is normocephalic and atraumatic. Conjunctiva pink. Sclera anicteric. Neck: Supple without lymphadenopathy. Abdomen: Soft, LLQ tenderness, thin, nondistended. Extremities: Normal skin color and turgor. No pedal edema Skin: No rashes, no jaundice Neurological: No focal deficits. Alert and oriented. - Labs CBC & Chem 7: 12/17/24 05:23 12/17/24 05:23 Labs: Abnormal Lab Results - Last 24 Hours (Table) 12/16/24 12/16/24 12/16/24 Range/Units 05:19 05:19 10:22 RBC 3.90 L (4.30-5.90) m/uL Hgb 12.3 L D (13.0-17.5) gm/dL Hct 37.7 L (39.0-53.0) % MCH (27.0-32.0) pg Lymphocytes # 0.7 L (1.0-4.8) k/uL Eosinophils # (0.04-0.35) X 10*3/uL ESR 28 H (0-15) mm/Hr Glucose (70-110) mg/dL Calcium (8.7-10.3) mg/dL C-Reactive Protein 1.80 H (0.00-0.80) mg/dL 12/17/24 12/17/24 Range/Units 05:23 05:23 RBC 3.63 L (4.30-5.90) m/uL Hgb 11.8 L (13.0-17.5) gm/dL Hct 34.3 L (39.0-53.0) % MCH 32.5 H (27.0-32.0) pg Lymphocytes # 0.56 L (1.0-4.8) k/uL Eosinophils # 0 L (0.04-0.35) X 10*3/uL ESR (0-15) mm/Hr Glucose 115 H (70-110) mg/dL Calcium 8.4 L (8.7-10.3) mg/dL C-Reactive Protein (0.00-0.80) mg/dL Microbiology - Last 24 Hours (Table) 12/12/24 13:20 Stool Culture - Final Stool Assessment and Plan (1) Ulcerative colitis Narrative/Plan: 39-year-old male with ulcerative colitis presenting with increased stool output with blood over the last 3 weeks duration with outpatient treatment failure. Patient was exposed to norovirus and did test positive about 3 weeks ago which likely caused a flareup in his ulcerative colitis. Admitted for IV steroids, symptomatic treatment last colonoscopy in February 2024 no plans to repeat colonoscopy. Continue symptomatic and supportive care. Current Visit: Yes Status: Acute Code(s): K51.90 - ULCERATIVE COLITIS, UNSPECIFIED, WITHOUT COMPLICATIONS SNOMED Code(s): 42828437 (2) Diarrhea Current Visit: Yes Status: Acute Code(s): R19.7 - DIARRHEA, UNSPECIFIED SNOMED Code(s): 90791207 (3) Poor nutrition Narrative/Plan: Consult dietitian. Patient refusing to eat most foods as he states he has multiple food sensitivities. Recommend increase protein intake. Current Visit: Yes Status: Acute Code(s): E63.9 - NUTRITIONAL DEFICIENCY, UNSPECIFIED SNOMED Code(s): 91033557 Plan: 1. Continue symptomatic and supportive care 2. Patient with multiple food intolerances and poor nutritional intake. Consult to dietitian. 3. Continue IV Solu-Medrol 40 mg every 8 hours 4. Continue balsalazide 5. Recommend increased protein intake and recommend Ensure clear 6. Ensure clear ordered, patient declining to drink 7. No plans on endoscopic evaluation 8. Anticipate discharge in the next 24 to 48 hours. Patient will need to be discharged on prednisone 40 mg taper by 5 mg weekly and follow-up with gastroenterology in 1 to 2 weeks Thank you for this consultation, we will continue to follow. Dr. Wilfrido Song I agree with the dictator's note, documented as a scribe by Khadijah Nelson.
[2024-12-18 08:25] LABS: Basophils # (A) 0.02 X 10*3/uL (0.00-0.10); Basophils % (A) 0.2 %; Eosinophils # (A) 0 X 10*3/uL (0.04-0.35); Eosinophils % (A) 0 %; HCT 36.3 % (39.6-50.0); HGB 12.2 g/dL (13.0-17.0); Lymphocytes # (A) 0.58 X 10*3/uL (0.90-5.00); Lymphocytes % (A) 6.7 %; MCH 31.6 pg (27.0-32.0); MCHC 33.6 g/dL (32.0-37.0); Mean Platelet Volume 10.5 FL (9.5-12.2); Monocytes # (A) 0.57 X 10*3/uL (0.20-1.00); Monocytes % (A) 6.6 %; NRBC Per 100 WBC 0 X 10*3/uL (0.00-0.01); Neutrophils % (A) 85.9 %; Platelet Count 324 X 10*3/uL (140-440); RBC 3.86 X 10*6/uL (4.40-5.60); RDW 11.7 % (11.5-14.5); WBC 8.62 X 10*3/uL (4.50-10.00)
[2024-12-18 08:46] LABS: BUN/Creat Ratio 14.86 Ratio (12.00-20.00); Blood Urea Nitrogen 10.4 mg/dL (9.0-27.0); Calcium 8.6 mg/dL (8.7-10.3); Carbon Dioxide 28.5 mmol/L (21.6-31.8); Chloride 99 mmol/L (96-109); Glucose 112 mg/dL (70-110); Potassium 4.6 mmol/L (3.5-5.5); Sodium 136 mmol/L (135-145)
--- NOTE | 2024-12-18 11:58 | P.PN ---
Subjective Progress Note Date: 12/18/24 SURGICAL PROGRESS NOTE CHIEF COMPLAINT: Ulcerative colitis exacerbation HISTORY OF PRESENT ILLNESS: Patient continues to report abdominal pain. He does report less blood in the stools. Stools are becoming less frequent. He was able to eat pears this morning without increase BMs so far. Afebrile. WBC 8.62 PHYSICAL EXAM: VITAL SIGNS: Reviewed. GENERAL: Well-developed in no acute distress. Abdomen: soft. diffuse tenderness ASSESSMENT: 1. Ulcerative colitis exacerbation 2. Recent norovirus infection 3 weeks ago PLAN: -No surgical intervention planned at this time -IV steroids per GI service. We added Rowasa suppositories -Continue supportive care -Continue low fiber diet -Surgical service will sign off. Please call with any questions or concerns Physician Principal Secretary note has been reviewed by physician. Signing provider agrees with the documented findings, assessment, and plan of care. Objective - Vital Signs Vital signs: Vital Signs Temp 97.9 F 12/18/24 07:08 Pulse 82 12/18/24 07:08 Resp 19 12/18/24 07:08 BP 116/79 12/18/24 07:08 Pulse Ox 95 12/18/24 07:08 FiO2 Intake & Output 12/17/24 12/18/24 12/18/24 18:59 06:59 18:59 Weight 61.235 kg Other: Voiding Method Toilet Toilet # Voids 5 1 # Bowel Movements 10 1 - Labs CBC & Chem 7: 12/18/24 05:11 12/18/24 05:11 Labs: Abnormal Lab Results - Last 24 Hours (Table) 12/18/24 12/18/24 Range/Units 05:11 05:11 RBC 3.86 L (4.40-5.60) X 10*6/uL Hgb 12.2 L (13.0-17.0) g/dL Hct 36.3 L (39.6-50.0) % Immature Gran # 0.05 H (0.00-0.04) X 10*3/uL Lymphocytes # 0.58 L (0.90-5.00) X 10*3/uL Eosinophils # 0 L (0.04-0.35) X 10*3/uL Glucose 112 H (70-110) mg/dL Calcium 8.6 L (8.7-10.3) mg/dL
--- NOTE | 2024-12-18 12:07 | P.PN ---
Subjective Progress Note Date: 12/18/24 Principal diagnosis: Ulcerative colitis exacerbation This is a pleasant 39-year-old male with a history of ulcerative colitis diagnosed 6 to 7 years ago who presented to the emergency department with complaints of multiple loose bloody bowel movements. States he has been follow ing with gastroenterology he was recently seen by Shahla and started on budesonide about a week ago without any improvement. He states he has been having 10-30 bowel movements a day. He has multiple dietary sensitivities. He denies any nausea or vomiting, he has been afebrile. States symptoms started after he had contact with family members with stomach flu and patient did end up positive with norovirus. States he lost about 15 pounds over last 1 months duration. On admission CRP was elevated, he had leukocytosis however states he has been afebrile. Medical team started him on IV antibiotics however patient has been refusing to take them. He was started on IV steroids. Symptoms are i mproving with only 3 bowel movements today. Denies any abdominal pain. 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 Rest of colon appeared normal. Recent outpatient stool samples from 11/30/2024 negative for C. difficile, positive for lactoferrin stool calprotectin 331, positive for norovirus C. difficile negative, stool lactoferrin positive, stool calprotectin elevated 12/15/2024 Patient seen and examined today as a follow-up. He wrote down that he had about 10-12 bowel movements all day yesterday and through the night. This morning he has had 2. He states that stool amount is improving. He is having small amount of blood following bowel movements. Abdominal pain improving. He is tolerating his diet. Stool calprotectin 1760. No leukocytosis, patient is afebrile. Denies any fevers or chills. 12/16/2024 Patient seen and examined as a follow up. States he feels like last night and today he is doing worse. Increased diarrhea and frequency, mixed with blood. No nause or vomiting. Abdominal pain mostly in LLQ. Eating small meals. Stool cultures negative. Hemoglobin stable at 12.3. 12/17/2024 Patient seen and examined today as a follow-up. He states that he tried to drink milk and that gave him an upset stomach and gas and he believes he had some more loose stools however less blood noted in less amount. Patient is still not eating any hospital food and very limited food from home. Eating white rice about 3 times a day. Refusing Ensure drink. Hemoglobin remained stable, no leukocytosis. Sed rate 28 CRP 1.8. 12/18/2024 Patient seen and examined today as a follow-up. He states he continues to have diarrhea. States he had likely 20 throughout the day and night yesterday. About half of them had blood but much less. He still is not eating much reportedly secondary to his multiple food sensitivities. Still getting some lower abdominal cramping associated with bowel movement. No nausea or vomiting. He has been afebrile. WBC 8.6 hemoglobin 12.2 platelet count 324,000. Objective - Vital Signs Vital signs: Vital Signs Temp 97.9 F 12/18/24 07:08 Pulse 82 12/18/24 07:08 Resp 19 12/18/24 07:08 BP 116/79 12/18/24 07:08 Pulse Ox 95 12/18/24 07:08 FiO2 Intake & Output 12/17/24 12/18/24 12/18/24 18:59 06:59 18:59 Weight 61.235 kg Other: Voiding Method Toilet Toilet # Voids 5 1 # Bowel Movements 10 1 - Exam General appearance: The patient is alert, oriented, appears in no acute distress . HET: Head is normocephalic and atraumatic. Conjunctiva pink. Sclera anicteric. Neck: Supple without lymphadenopathy. Abdomen: Soft, LLQ tenderness, thin, nondistended. Extremities: Normal skin color and turgor. No pedal edema Skin: No rashes, no jaundice Neurological: No focal deficits. Alert and oriented. - Labs CBC & Chem 7: 12/18/24 05:11 12/18/24 05:11 Labs: Abnormal Lab Results - Last 24 Hours (Table) 12/18/24 12/18/24 Range/Units 05:11 05:11 RBC 3.86 L (4.40-5.60) X 10*6/uL Hgb 12.2 L (13.0-17.0) g/dL Hct 36.3 L (39.6-50.0) % Immature Gran # 0.05 H (0.00-0.04) X 10*3/uL Lymphocytes # 0.58 L (0.90-5.00) X 10*3/uL Eosinophils # 0 L (0.04-0.35) X 10*3/uL Glucose 112 H (70-110) mg/dL Calcium 8.6 L (8.7-10.3) mg/dL Assessment and Plan (1) Ulcerative colitis Narrative/Plan: 39-year-old male with ulcerative colitis presenting with increased stool output with blood over the last 3 weeks duration with outpatient treatment failure. Patient was exposed to norovirus and did test positive about 3 weeks ago which likely caused a flareup in his ulcerative colitis. Admitted for IV steroids, symptomatic treatment last colonoscopy in February 2024 no plans to repeat colonoscopy. Continue symptomatic and supportive care. Will continue IV Solu-Medrol 40 mg every 8 hours today then recommend transition to 20 mg every 8 hours tomorrow. Discharge discretionary per medical team. Recommend oral prednisone 40 mg daily taper by 5 mg every 2 weeks. Prescription will be sent in. He is to follow with gastroenterology next week and further discuss Biologics for treatment of ulcerative colitis, which she has refused in the past. Discussion had with patient regarding recommendation for Biologics to improve his symptoms. Discussed importance of nutrition and eating properly and need for protein intake. Current Visit: Yes Status: Acute Code(s): K51.90 - ULCERATIVE COLITIS, UNSPECIFIED, WITHOUT COMPLICATIONS SNOMED Code(s): 64335322 (2) Diarrhea Current Visit: Yes Status: Acute Code(s): R19.7 - DIARRHEA, UNSPECIFIED SNOMED Code(s): 31269766 (3) Poor nutrition Narrative/Plan: Consult dietitian. Patient refusing to eat most foods as he states he has multiple food sensitivities. Recommend increase protein intake. Current Visit: Yes Status: Acute Code(s): E63.9 - NUTRITIONAL DEFICIENCY, UNSPECIFIED SNOMED Code(s): 65311356 Plan: 1. Continue symptomatic and supportive care 2. Dietitian consulted 3. Continue IV Solu-Medrol 40 mg every 8 hours today then transition to Solu-Medrol 20 mg every 8 hours tomorrow 4. Continue balsalazide 5. Mesalamine enema ordered at at bedtime 6. Recommend increased protein intake and recommend Ensure clear 7. Stool studies ordered and reviewed 8. No plans on endoscopic evaluation 9. Patient to follow-up with gastroenterology next week 10. Discharge timing at the discretion area of primary medical team when symptoms seem to improve or stabilize 11. Patient will need to be discharged on prednisone 40 mg taper by 5 mg every 2 weeks and follow-up with gastroenterology next week. Prescription sent to patient's pharmacy. Thank you for this consultation, we will sign off at this time as with there will be no further GI coverage through the weekend or next week. Dr. Wilfrido Snog I agree with the dictator's note, documented as a scribe by Khadijah Nelson.
--- NOTE | 2024-12-18 12:57 | P.PN ---
Subjective Interval History: History of present illness: 39-year-old male patient with past medical history significant for ulcerative colitis who presented to ER with a complaint of abdominal pain, and bloody diarrhea. Patient reported that he had norovirus about 3 weeks ago when patient had fever, watery diarrhea. Patient stated that his diarrhea has not improved since then, patient is having multiple bowel movements more than 20 every day, also reported on and off blood in the stools. Patient reported that he has been getting worse for the last 3 days and is unable to sleep as patient need to go to the bathroom almost every hour. Patient reported that he has followed up with gastroenterology twice over the last couple weeks, he was started on budesonide however this has not been helping. Patient is afebrile, heart rate 89, respiratory rate 17, blood pressure 110/71, saturating 99% on room air. WBCs 18.1, hemoglobin 15.4, platelet 409. Sodium 131, potassium 3.5, chloride 92, CO2 29, BUN 11, creatinine 0.64. Liver profile unremarkable CRP 7.5. Stool lactoferrin positive C. difficile negative CT abdomen pelvis showed diffuse colitis likely from infectious/inflammatory process. 12/14--patient was seen and examined today, continues to have diarrhea, slightly better as compared to yesterday, remained afebrile, heart rate 91, respiratory rate 18, blood pressure 110/63, saturating 97% on room air. WBCs 8.01, hemoglobin 12.1, platelet 318. BMP unremarkable. C. difficile negative. General surgery following. GI consulted. 12/15--patient was seen and examined today. Still complains of multiple episodes of diarrhea, improved as compared to yesterday. Remained afebrile, vital stable. WBCs 7.3, hemoglobin 11.1, platelets 310. BMP unremarkable. GI following, recommended to continue symptomatic and supportive care, continue IV Solu-Medrol, plan to prednisone taper at discharge, continue balsalazide. 12/16--patient was seen and examined today. Patient stated that diarrhea has gotten worse as compared to yesterday still reports blood in the stool. Patient is afebrile, heart rate 67, respiratory rate 18, blood pressure 119/75, saturating 99% on room air. WBCs 8.6, hemoglobin stable 12.3, platelet 330. Currently on IV Solu-Medrol, gastroenterology following, recommended continue symptomatic and supportive care. 12/17--patient was seen and examined today. Afebrile, heart rate 70, respiratory rate 16, blood pressure 120 over , saturating 100% on room air. WBC 7.8, hemoglobin 11 prednisone taper at discharge as above, platelet 305. BMP unremarkable. Continues complain of diarrhea more than 20 episodes in 24 hours. Remains on IV steroids Solu-Medrol. Gastroenterology following. Continue IV fluids. 12/18--- patient was seen and examined today.Afebrile, heart rate 82, respiratory rate 19, blood pressure 116/79, saturating 95% room air. WBCs 8.6, hemoglobin 12.2, platelet 324. BMP is unremarkable. GI recommended to continue Solu-Medrol 40 mg every 8 hours today, then transition to Solu-Medrol 20 mg every 8 hours tomorrow, okay to discharge on prednisone taper 40 mg x 5 mg every 2 weeks and follow-up with gastroenterology next week once symptoms better. Continues complain of multiple episodes of loose stools, blood in the stool is improving. Continues on IV fluids. Assessment and plan: Acute ulcerative colitis flareup: History of ulcerative colitis, follows gastroenterology, takes Colazal, was started on budesonide as outpatient for bloody diarrhea for 3 weeks Antiemetics, pain control IV fluids Solu-Medrol 40 mg every 8 hours, switch to 20 mg every 8 hours , prednisone taper 40 mg daily 40 mg daily at discharge, taper by 5 mg every 2 weeks and outpatient follow-up with GI. Balsalazide Stool culture, stool calprotectin C. difficile negative Monitor ESR/CRP General Surgery consulted and following GI consulted--continue current treatment, no plan for endoscopy. Recommended prednisone taper at discharge as above, discharge once symptoms better. DVT prophylaxis SCD Disposition: Not medically ready to discharge, still having multiple episodes of loose stools, on IV fluids. Monitor vital signs and labs Labs and medication were reviewed. Continue same treatment. Further recommendations as per clinical course of the patient PHYSICAL EXAMINATION: GENERAL: The patient is A&O x3, NAD HEENT: EOMI, Sclerae anicteric, Moist Mucous membranes Neck: Supple, Non tender, No JVD PULMONARY: Equal breath souds B/L, No wheezing, No crackles. CARDIOVASCULAR: S1, S2 present. No murmurs, rubs, or gallops. ABDOMEN: Soft, nontender, nondistended, normoactive bowel sounds. No guarding or rebound tenderness. MUSCULOSKELETAL: No edema, No cyanosis. No clubbing. Normal ROM. Intact peripheral pulses. NEUROLOGICAL: CN 2-12 grossly intact. No FND REVIEW OF SYSTEMS: CONSTITUTIONAL: No fever or chills. CARDIOVASCULAR: No chest pain, palpitations or syncope. PULMONARY: No shortness of breath, no cough, sore throat. GASTROINTESTINAL: Complains of diarrhea. No nausea vomiting. : No Dysuria, urgency, frequency. Extremities: No edema. NEUROLOGICAL: No headaches, no weakness, or numbness Dictation was produced using [employer] dictation software. please excuse any grammatical, word or spelling errors. Objective - Vital Signs Vital signs: Vital Signs Temp 97.9 F 12/18/24 07:08 Pulse 82 12/18/24 07:08 Resp 19 12/18/24 07:08 BP 116/79 12/18/24 07:08 Pulse Ox 95 12/18/24 07:08 FiO2 Intake & Output 12/17/24 12/18/24 12/18/24 18:59 06:59 18:59 Weight 61.235 kg Other: Voiding Method Toilet Toilet # Voids 5 1 # Bowel Movements 10 1 - Labs CBC & Chem 7: 12/18/24 05:11 12/18/24 05:11 Labs: Abnormal Lab Results - Last 24 Hours (Table) 12/18/24 12/18/24 Range/Units 05:11 05:11 RBC 3.86 L (4.40-5.60) X 10*6/uL Hgb 12.2 L (13.0-17.0) g/dL Hct 36.3 L (39.6-50.0) % Immature Gran # 0.05 H (0.00-0.04) X 10*3/uL Lymphocytes # 0.58 L (0.90-5.00) X 10*3/uL Eosinophils # 0 L (0.04-0.35) X 10*3/uL Glucose 112 H (70-110) mg/dL Calcium 8.6 L (8.7-10.3) mg/dL
[2024-12-18] MEDS: MESALAMINE 4 GM/60 ML ENEMA RECTAL SCH (21:49)
[2024-12-19 09:46] LABS: Basophils # (A) 0.01 X 10*3/uL (0.00-0.10); Basophils % (A) 0.1 %; Eosinophils # (A) 0 X 10*3/uL (0.04-0.35); Eosinophils % (A) 0 %; HCT 36.1 % (39.6-50.0); HGB 12.5 g/dL (13.0-17.0); Lymphocytes # (A) 0.45 X 10*3/uL (0.90-5.00); Lymphocytes % (A) 4.8 %; MCH 32.3 pg (27.0-32.0); MCHC 34.6 g/dL (32.0-37.0); MCV 93.3 FL (80.0-97.0); Mean Platelet Volume 10.9 FL (9.5-12.2); Monocytes # (A) 0.56 X 10*3/uL (0.20-1.00); NRBC Per 100 WBC 0 X 10*3/uL (0.00-0.01); Neutrophils # (A) 8.34 X 10*3/uL (1.80-7.70); Neutrophils % (A) 88.6 %; Platelet Count 342 X 10*3/uL (140-440); RBC 3.87 X 10*6/uL (4.40-5.60); RDW 11.9 % (11.5-14.5); WBC 9.41 X 10*3/uL (4.50-10.00)
[2024-12-19 13:22] LABS: BUN/Creat Ratio 17.29 Ratio (12.00-20.00); Blood Urea Nitrogen 12.1 mg/dL (9.0-27.0); Calcium 8.5 mg/dL (8.7-10.3); Carbon Dioxide 25.3 mmol/L (21.6-31.8); Chloride 100 mmol/L (96-109); Glucose 115 mg/dL (70-110); Potassium 4.4 mmol/L (3.5-5.5); Sodium 134 mmol/L (135-145)
--- NOTE | 2024-12-19 13:52 | P.PN ---
Subjective Progress Note Date: 12/19/24 39-year-old male patient with past medical history significant for ulcerative colitis who presented to ER with a complaint of abdominal pain, and bloody diarrhea. Patient reported that he had norovirus about 3 weeks ago when patient had fever, watery diarrhea. Patient stated that his diarrhea has not improved since then, patient is having multiple bowel movements more than 20 every day, also reported on and off blood in the stools. Patient reported that he has been getting worse for the last 3 days and is unable to sleep as patient need to go to the bathroom almost every hour. Patient reported that he has followed up with gastroenterology twice over the last couple weeks, he was started on bude sonide however this has not been helping. Patient is afebrile, heart rate 89, respiratory rate 17, blood pressure 110/71, saturating 99% on room air. WBCs 18.1, hemoglobin 15.4, platelet 409. Sodium 131, potassium 3.5, chloride 92, CO2 29, BUN 11, creatinine 0.64. Liver profile unremarkable CRP 7.5. Stool lactoferrin positive C. difficile negative CT abdomen pelvis showed diffuse colitis likely from infectious/inflammatory process. 12/14--patient was seen and examined today, continues to have diarrhea, slightly better as compared to yesterday, remained afebrile, heart rate 91, respiratory rate 18, blood pressure 110/63, saturating 97% on room air. WBCs 8.01, hemoglobin 12.1, platelet 318. BMP unremarkable. C. difficile negative. General surgery following. GI consulted. 12/15--patient was seen and examined today. Still complains of multiple episodes of diarrhea, improved as compared to yesterday. Remained afebrile, vital stable. WBCs 7.3, hemoglobin 11.1, platelets 310. BMP unremarkable. GI following, recommended to continue symptomatic and supportive care, continue IV Solu-Medrol, plan to prednisone taper at discharge, continue balsalazide. 12/16--patient was seen and examined today. Patient stated that diarrhea has gotten worse as compared to yesterday still reports blood in the stool. Patient is afebrile, heart rate 67, respiratory rate 18, blood pressure 119/75, saturating 99% on room air. WBCs 8.6, hemoglobin stable 12.3, platelet 330. Currently on IV Solu-Medrol, gastroenterology following, recommended continue symptomatic and supportive care. 12/17--patient was seen and examined today. Afebrile, heart rate 70, respiratory rate 16, blood pressure 120 over , saturating 100% on room air. WBC 7.8, hemoglobin 11 prednisone taper at discharge as above, platelet 305. BMP unremarkable. Continues complain of diarrhea more than 20 episodes in 24 hours. Remains on IV steroids Solu-Medrol. Gastroenterology following. Continue IV fluids. 12/18--- patient was seen and examined today.Afebrile, heart rate 82, respiratory rate 19, blood pressure 116/79, saturating 95% room air. WBCs 8.6, hemoglobin 12.2, platelet 324. BMP is unremarkable. GI recommended to continue Solu-Medrol 40 mg every 8 hours today, then transition to Solu-Medrol 20 mg every 8 hours tomorrow, okay to discharge on prednisone taper 40 mg x 5 mg every 2 weeks and follow-up with gastroenterology next week once symptoms better. Continues complain of multiple episodes of loose stools, blood in the stool is improving. Continues on IV fluids. 12/19. Patient seen examined. Patient still complaining of diarrhea. Steroids changed to IV Solu-Medrol 20 mg every 8. Encouraged patient to eat and hydrate on his own. REVIEW OF SYSTEMS: CONSTITUTIONAL: No fever, no malaise,. CARDIOVASCULAR: No chest pain, no palpitations, no syncope. PULMONARY: No shortness of breath, no cough, GASTROINTESTINAL: No diarrhea, no nausea, no vomiting, no abdominal pain. NEUROLOGICAL: No headaches, no weakness, PHYSICAL EXAMINATION: GENERAL: The patient is alert and oriented x3, not in any acute distress. Well developed, well nourished. HEENT: Pupils are round and equally reacting to light. EOMI. No scleral icterus. No conjunctival pallor. Normocephalic, atraumatic. No pharyngeal erythema. No thyromegaly. CARDIOVASCULAR: S1 and S2 present. No murmurs, rubs, or gallops. PULMONARY: Chest is clear to auscultation, no wheezing or crackles. ABDOMEN: Soft, nontender, nondistended, normoactive bowel sounds. No palpable organomegaly. MUSCULOSKELETAL: No joint swelling or deformity. EXTREMITIES: No cyanosis, clubbing, or pedal edema. NEUROLOGICAL: Gross neurological examination did not reveal any focal deficits. SKIN: No rashes. Assessment and plan Acute ulcerative colitis flareup: History of ulcerative colitis, follows gastroenterology, takes Colazal, was started on budesonide as outpatient for bloody diarrhea for 3 weeks Antiemetics, pain control IV fluids Solu-Medrol 40 mg every 8 hours, switch to 20 mg every 8 hours , prednisone taper 40 mg daily 40 mg daily at discharge, taper by 5 mg every 2 weeks and outpatient follow-up with GI. Balsalazide Stool culture, stool calprotectin C. difficile negative Monitor ESR/CRP General Surgery consulted and following GI consulted--continue current treatment, no plan for endoscopy. Recommended prednisone taper at discharge as above, discharge once symptoms better. Labs and medication were reviewed.. Continue same treatment. Continue with symptomatic treatment. Resume home medication. Monitor labs and vitals. DVT and GI prophylaxis. Further recommendations as per clinical course of the patient Dictation was produced using [employer] dictation software. please excuse any grammatical, word or spelling errors. Objective - Vital Signs Vital signs: Vital Signs Temp 97.7 F 12/19/24 07:39 Pulse 63 12/19/24 07:39 Resp 17 12/19/24 07:39 BP 122/71 12/19/24 07:39 Pulse Ox 98 12/19/24 07:39 FiO2 Intake & Output 12/18/24 12/19/24 12/19/24 18:59 06:59 18:59 Intake Total 1620 Balance 1620 Intake: Oral 1620 Other: Voiding Method Toilet # Voids 3 3 # Bowel Movements 10 10 - Labs CBC & Chem 7: 12/19/24 05:06 12/19/24 05:06 Labs: Abnormal Lab Results - Last 24 Hours (Table) 12/19/24 Range/Units 05:06 RBC 3.87 L (4.40-5.60) X 10*6/uL Hgb 12.5 L (13.0-17.0) g/dL Hct 36.1 L (39.6-50.0) % MCH 32.3 H (27.0-32.0) pg Immature Gran # 0.05 H (0.00-0.04) X 10*3/uL Neutrophils # 8.34 H (1.80-7.70) X 10*3/uL Lymphocytes # 0.45 L (0.90-5.00) X 10*3/uL Eosinophils # 0 L (0.04-0.35) X 10*3/uL
[2024-12-19] MEDS: methylPREDNISolone SOD SUCCI 40 MG/ML 1 ML VIAL IV SCH (16:36)
[2024-12-20 07:43] VITALS: BP 107/66; PULSE 69; RESP 16; TEMP 97.7
--- NOTE | 2024-12-20 13:42 | P.DS ---
Providers Date of admission: 12/12/24 14:21 Expected date of discharge: 12/20/24 Attending physician: Arturo Kirkpatrick MD Consults: 12/14/24 09:09 Consult Physician Routine Consulting Provider: Keila Song Consult Reason/Comments: Ulcerative colitis flare up Do you want consulting provider notified?: Yes Primary care physician: Jarod Norwood MD Hospital Course: Discharge diagnoses; Acute ulcerative colitis flareup: History of ulcerative colitis, follows gastroenterology, takes Colazal, was started on budesonide as outpatient for bloody diarrhea for 3 weeks prednisone taper 40 mg daily 40 mg daily at discharge, taper by 5 mg every 2 weeks and outpatient follow-up with GI. Balsalazide General Surgery consulted and following GI consulted--continue current treatment, no plan for endoscopy. Recommended prednisone taper at discharge as above Hospital course; 39-year-old male patient with past medical history significant for ulcerative colitis who presented to ER with a complaint of abdominal pain, and bloody diarrhea. Patient reported that he had norovirus about 3 weeks ago when patient had fever, watery diarrhea. Patient stated that his diarrhea has not improved since then, patient is having multiple bowel movements more than 20 every day, also reported on and off blood in the stools. Patient reported that he has been getting worse for the last 3 days and is unable to sleep as patient need to go to the bathroom almost every hour. Patient reported that he has followed up with gastroenterology twice over the last couple weeks, he was started on budesonide however this has not been helping. Patient is afebrile, heart rate 89, respiratory rate 17, blood pressure 110/71, saturating 99% on room air. WBCs 18.1, hemoglobin 15.4, platelet 409. Sodium 131, potassium 3.5, chloride 92, CO2 29, BUN 11, creatinine 0.64. Liver profile unremarkable CRP 7.5. Stool lactoferrin positive C. difficile negative CT abdomen pelvis showed diffuse colitis likely from infectious/inflammatory process. 12/14--patient was seen and examined today, continues to have diarrhea, slightly better as compared to yesterday, remained afebrile, heart rate 91, respiratory rate 18, blood pressure 110/63, saturating 97% on room air. WBCs 8.01, hemoglobin 12.1, platelet 318. BMP unremarkable. C. difficile negative. General surgery following. GI consulted. 12/15--patient was seen and examined today. Still complains of multiple episodes of diarrhea, improved as compared to yesterday. Remained afebrile, vital stable. WBCs 7.3, hemoglobin 11.1, platelets 310. BMP unremarkable. GI following, recommended to continue symptomatic and supportive care, continue IV Solu-Medrol, plan to prednisone taper at discharge, continue balsalazide. 12/16--patient was seen and examined today. Patient stated that diarrhea has gotten worse as compared to yesterday still reports blood in the stool. Patient is afebrile, heart rate 67, respiratory rate 18, blood pressure 119/75, saturating 99% on room air. WBCs 8.6, hemoglobin stable 12.3, platelet 330. Currently on IV Solu-Medrol, gastroenterology following, recommended continue symptomatic and supportive care. 12/17--patient was seen and examined today. Afebrile, heart rate 70, respiratory rate 16, blood pressure 120 over , saturating 100% on room air. WBC 7.8, hemoglobin 11 prednisone taper at discharge as above, platelet 305. BMP unremarkable. Continues complain of diarrhea more than 20 episodes in 24 hours. Remains on IV steroids Solu-Medrol. Gastroenterology following. Continue IV fluids. 12/18--- patient was seen and examined today.Afebrile, heart rate 82, respiratory rate 19, blood pressure 116/79, saturating 95% room air. WBCs 8.6, hemoglobin 12.2, platelet 324. BMP is unremarkable. GI recommended to continue Solu-Medrol 40 mg every 8 hours today, then transition to Solu-Medrol 20 mg every 8 hours tomorrow, okay to discharge on prednisone taper 40 mg x 5 mg every 2 weeks and follow-up with gastroenterology next week once symptoms better. Continues complain of multiple episodes of loose stools, blood in the stool is improving. Continues on IV fluids. 12/19. Patient seen examined. Patient still complaining of diarrhea. Steroids changed to IV Solu-Medrol 20 mg every 8. Encouraged patient to eat and hydrate on his own. 12/20. Patient seen and examined. Patient doing slightly better. Patient being discharged on tapering dose of prednisone as prescribed by GI PHYSICAL EXAMINATION: GENERAL: The patient is alert and oriented x3, not in any acute distress. Well developed, well nourished. HEENT: Pupils are round and equally reacting to light. EOMI. No scleral icterus. No conjunctival pallor. Normocephalic, atraumatic. No pharyngeal erythema. No thyromegaly. CARDIOVASCULAR: S1 and S2 present. No murmurs, rubs, or gallops. PULMONARY: Chest is clear to auscultation, no wheezing or crackles. ABDOMEN: Soft, nontender, nondistended, normoactive bowel sounds. No palpable organomegaly. MUSCULOSKELETAL: No joint swelling or deformity. EXTREMITIES: No cyanosis, clubbing, or pedal edema. NEUROLOGICAL: Gross neurological examination did not reveal any focal deficits. SKIN: No rashes. Dictation was produced using [employer] dictation software. please excuse any grammatical, word or spelling errors. Plan - Discharge Summary Discharge Rx Participant: No New Discharge Prescriptions: New predniSONE 0 mg PO DIRECTED #252 tab Continue Balsalazide Disodium 2,250 mg PO TID Budesonide [Entocort EC] See Taper PO DAILY Discharge Medication List Balsalazide Disodium 2,250 mg PO TID 03/04/24 [History] Budesonide [Entocort EC] See Taper PO DAILY 12/12/24 [History] predniSONE 0 mg PO DIRECTED #252 tab 12/18/24 [Rx] Follow up Appointment(s)/Referral(s): Jarod Norwood MD [Primary Care Provider] - 1-2 days Kathy Keating FNPBC [REFERRING] - 1 Week Patient Instructions/Handouts: High Protein Diet (DC), High Protein / High Calorie Diet (DC) Discharge Disposition: HOME SELF-CARE
== END 2024-12-20 12:04 | disposition home or self-care (01) | DRG 387 ==
LOC: EC 11:30 → 4SSUR 14:21
PROVIDERS: ADMIT Internal Medicine; ATTEND Internal Medicine
DX: K51.911 Ulcerative colitis, unspecified with rectal bleeding (principal); E63.9 Nutritional deficiency, unspecified; K59.00 Constipation, unspecified; Z87.891 Personal history of nicotine dependence; Z88.1 Allergy status to other antibiotic agents; Z88.0 Allergy status to penicillin; Z86.19 Personal history of other infectious and parasitic diseases; Z79.899 Other long term (current) drug therapy
CPT/HCPCS: 36415; 74177; 80048; 80053; 81003; 82150; 83605; 83630; 83690; 83735; 83993; 84100; 85025; 85652; 86140; 87045; 87046; 87324; 96361; 96374; 96375; 99285